=== PATIENT | female | born 1935 | race Caucasian/White ===

== ENCOUNTER 2016-08-07 05:37 | Inpatient (IN) | payer MEDICARE, OTHER ==
[2016-08-07] VITALS (20 sets, daily range): BP systolic 100–183; BP diastolic 44–73; PULSE 54–78; RESP 12–24; O2SAT 96–100
[~2016-08-07] VITALS: Ht 154.9 cm; Wt 67.9 kg
[~2016-08-07 05:37] MED LIST: AMLO10TA3 PO; ASPI325T32 PO; ATOR20TA PO; CALC-78 PO; CHOL10008 PO; Lactated Ringer's 1,000 ML IV ONE; METO100T3 PO; MULT-666 PO; OMEG-10 PO; OMEP20TA86 PO; TRIA1TAB3 PO
[2016-08-07] MEDS ORDERED: Clindamycin Inj 900 MG in IV Premix 1 EACH IV SCH (06:00)
--- NOTE | 2016-08-07 07:21 | PCM.HPANE ---
Patient Data Surgeon Admitting Provider: Attending Provider:Anthony Hollingsworth MD Primary Care Physician:Tc Morales MD Other Provider:Sylvester Baker Anesthesia Reason for Visit Right Lower Lobe Lung Cancer Ht/WT & BMI Height (Feet): 5 Height (Inches): 1 Weight (Kilograms): 70.4 Body Mass Index 29.00 Allergies Coded Allergies: Penicillins (Verified Allergy, Severe, "SEVERE REACTION", 08/04/16) lisinopril (Verified Adverse Reaction, Severe, ITCHING, DIARRHEA, 08/04/16) niacin (Verified Adverse Reaction, Severe, ITCHING, 08/04/16) Past Anesthesia History Anesthesia History: Denies:: Abnormal Airway, Anesthesia Reactions, Difficult Intubation, Fam Anesthesia Reaction, Fam Malignant Hypertherm, Malignant Hyperthermia Diabetes History Hx Diabetes?: No MRSA MRSA: No Medications Blood Thinner: Aspirin Hypertension Medication: Yes (AMLODIPINE,TRIAMTERENE/HCTZ) Home Meds Incl Beta Pradeep: Yes Date Beta Pradeep Taken: Aug 07, 2016 Time Beta Pradeep Taken: 429 Reported Medications Calcium Carbonate/Vitamin D3 (Calcium 500 + Vit D Caplet)1 Each Tablet1 Each PO BID 06/30/16 [place]adoo-3/Dha/Epa/Fish Oil (Fish Oil 1,000 mg Softgel)1 Each Capsule2 Each PO DAILY 2 CAPSULES DAILY 06/30/16 Cholecalciferol (Vitamin D3) (Vitamin D3)1,000 Unit Tab.chewUnknown Dose PO DAILY 06/30/16 Metoprolol Tartrate 100 Mg [id number] Mg PO BID 30 Days Ref 0 06/30/16 Omeprazole 20 Mg Tablet.dr20 Mg PO DAILY 06/30/16 Triamterene/HCTZ 37.5-25 mg 1 Each Tablet0.5 Tablet PO DAILY 0 06/30/16 Multivitamin (Once Daily)1 Each Tablet1 Each PO DAILY 06/30/16 Aspirin 325 Mg Ogrmbb630 Mg PO DAILY #1 BOTTLE 06/30/16 Atorvastatin (Lipitor)20 Mg Iqpucg93 Mg PO DAILY 30 Days Ref 0 11/12/13 Amlodipine 10 Mg Cujrlq37 Mg PO DAILY 30 Days Ref 0 06/27/13 History History of ENT Problems?: Yes HEENT History: Positive for:: Cataracts (s/p surgery) Denies:: Abnormal Airway Difficult Intubation Dysphagia Glaucoma Hearing Problem Sinus Problem TMJ Denture Type: Partial- Upper Teeth Condition: Within Normal Limits Hx of Heart Problems?: Yes Cardiovascular History: Positive for:: Chest Pain (2013 MPS WNL) Hypertension (HYPERLIPIDEMIA) Irregular Heartbeat (HX PSVT PT REPOIRTED PALPITATIONS) Denies:: Heart Murmur (STRESS ECHO 07/2016 EF 65-70%) Valvular Heart Disease Hx of Respiratory Problem?: Yes Respiratory History: Positive for:: Chest Surgery (S/P RLL BX RLL LUNG CA= CURRENT PROBLEM) Cough (CHRONIC, PRODUCTIVE PFT'S ORDERED-NO RESULTS YET) Denies:: Use of C-PAP Machine Hx Neurologic Problems?: Yes Neurological History: Positive for:: CVA (slight residual mental/memory diff) Headaches TIA Hx of GI Problems?: Yes Other GI Pertinent History: S/P APPY Hx of Problems?: No Female Hx: Positive for:: Problems with Breasts? (S/P RT BREAST BX, rt.mastectomy due to cancer in ) Denies:: Currently Endometriosis Pelvic Inflammatory Skin History: Denies:: History Skin Disorders? Pressure Ulcers Hx Musculoskeletal Problems?: Yes Musculoskeletal History: Positive for:: Back Injury Musculoskeletal Trauma (S/P RT KNEE SCOPE) Rheumatoid Arthritis Denies:: Joint Replacement Hx of Psycho/Social Problems?: Yes Psycho Social History: Positive for:: Hx Depression Hx Surgeries?: Yes (appendectomy,gallbladder,back,RT KNEE SCOPE,CATARACTS,RT BREAST BX/MASTECTO) Hx Any Other Health Problems?: Yes Other History: Positive for:: Cancer (hx of breast ca, RLL LUNG CA) Hospitalization Thyroid Disease Denies:: Endocrine Disease History Blood Transfusions: Denies:: Blood Transfuse Reaction Blood Transfusions Hx Diabetes: No Hx Alcohol Use: NoHx Substance Use: No Smoking Status: Former Smoker Have You Smoked inLast 12 mo: NoApprox How Many Cigarettes/day: 60 PK/YR/HX Stop/Bang Treated for Sleep Apnea?: No Do You Have a CPAP Machine?: No S-Snoring: Do You Snore Loudly: No T-Tired: feel tired, fatigued: No O-Obsered: Observed not breath: No P-Blood Pressure: treated: Yes B- Body Mass Index > 35 kg/m2: No A- Age over 50: Yes N- Neck Large Circumference: No G- Gender Male: No JONATHAN Total Score: 2 JONATHAN Risk Assessment: Low Risk, <3 Yes Risk Assessment Category Category 1A: Patient has history of documented sleep apnea, and HAS NOT received any narcotic, sedative or anesthesia administration during this stay. Category 1B: Patient has history of documented sleep apnea, and HAS received any narcotic , sedative or anesthesia administration during this stay Category 2: Patient has SUSPECTED Obstructive Sleep Apnea, and HAS received any narcotic , sedative or anesthesia administration during this stay. Category 3: Patient has SUSPECTED Obstructive Sleep Apnea and HAS NOT received narcotic, sedative or anesthesia administration during this stay. Category 4: Outpatient in Procedural Areas with known sleep apnea or who screen positive for High Risk via the STOP/BANG questionnaire. Exam Exam Vital Signs Vital Signs Date Time Temp Pulse Resp B/P Pulse Ox O2 Delivery O2 Flow Rate FiO2 08/07/16 06:31 65 18 183/73 96 Room Air 08/07/16 06:08 36.0 68 18 168/73 96 Room Air General Appearance: Oriented X3 HEENT/AIRWAY: MP 2 Lungs: Diminished Heart: Regular Rate/Rhythm Meds/Labs/Diagnostics Admission Meds Current Medications Lactated Ringer's (Lr) 1,000 ml @ 120 mls/hr Q8H20M ONCE IV Last administered on 08/07/16t 05:43; Start 08/07/16 at 05:00; Stop 08/07/16 at 13:19 Plan Impression Patient chart reviewed, patient interviewed and anesthestic plan with risks, benefits, and alternatives discussed, and informed consent obtained. ASA Physical Status: ASA3 Severe Disease Anesthetic Support Modalities: Arterial Line Anesthetic Plan: GA, Epidural Bene/Risks/Altern/Consents: Yes HP Complete Prior to Induction: Yes Other DLETT, Chipped teeth, need for prolonged intubation Demian Strak MD Aug 07, 2016 07:21
[2016-08-07] MEDS ORDERED: Ondansetron 2 mg/mL 2 mL Inj IVPUSH PRN ×3 (07:35→11:50)
[2016-08-07] MEDS ORDERED: Atropine 1 mg/mL Inj IVPUSH PRN (07:35)
[2016-08-07] MEDS ORDERED: EPHEDrine Sulfate 50 mg/mL Inj IV PRN (07:35)
[2016-08-07] MEDS ORDERED: fentaNYL 2 mCg/mL-Bupivicaine 0.125% 100 mL Premix EPIDURAL ONE (08:25)
[2016-08-07] MEDS: Sodium Chloride LOK Flush 10 mL Syringe IVFLUSH SCH ×3 (08:30→19:51)
[2016-08-07] MEDS ORDERED: Bupivacaine-MPF 0.5% W/EPI 30 mL Inj INFILTRATE ONE (08:36)
[2016-08-07 08:46] LABS: APPEARANCE,URINE HAZY (CLEAR,HAZY); COLOR,URINE STRAW (YELLOW)
[2016-08-07 08:47] LABS: OCCULT BLOOD,URINE NEGATIVE (NEGATIVE); UROBILINOGEN,URINE NORMAL (NORMAL)
[2016-08-07] MEDS ORDERED: Lactated Ringer's 500 ML IV PRN (09:01)
[2016-08-07] MEDS ORDERED: Lactated Ringer's 1,000 ML IV SCH ×2 (09:01→22:55)
[2016-08-07] MEDS ORDERED: Labetalol 5 mg/mL 4 mL Inj IV PRN (09:05)
[2016-08-07] MEDS ORDERED: Phenylephrine 10,000 mCg/mL Inj IVPUSH PRN (09:05)
[2016-08-07] MEDS ORDERED: MetoCLOpramide 5 mg/mL 2 mL Inj IVPUSH PRN ×2 (09:05→11:50)
[2016-08-07] MEDS ORDERED: HYDROmorphone 1 mg/mL Inj IVPUSH PRN (09:05)
[2016-08-07] MEDS ORDERED: Dexamethasone 4 mg/mL Inj IVPUSH PRN (09:05)
[2016-08-07] MEDS ORDERED: EPHEDrine Sulfate 50 mg/mL Inj IVPUSH PRN (09:05)
[2016-08-07] MEDS: Dextrose 5% Lactated Ringer's 1,000 ML IV SCH ×2 (11:49→19:41)
[2016-08-07] MEDS ORDERED: Polyethylene Glycol (PEG) 17 Gm Powder PO PRN (11:50)
--- NOTE | 2016-08-07 12:18 | PCM.SURGOP ---
Surgical Operative Report Date of Service: Aug 07, 2016 Pre Operative Diagnosis Right lower lobe adenocarcinoma Post Operative Diagnosis Same Procedure: Cervical mediastinoscopy with biopsy, right thoracotomy, right lower lobectomy Surgeon and Bridal Sales Consultant: Surgeon: Anthony Hollingsworth MD Assistants: Luther Leyva M.D.; Giuliano Simpson M.D. 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 Staging showed no evidence of mediastinal lymphadenopathy or distant disease. Pulmonary function testing demonstrated an FEV1 of 1.2 L, and she had a normal ejection fraction on stress echo. She was offered referral to a tertiary care center for minimally invasive pulmonary resection, but she elected to stay in the [facility], and was offered cervical mediastinoscopy, right thoracotomy with right lower lobectomy. After discussion of risks and benefits, she agreed to proceed. Findings: Frozen section from mediastinal lymph nodes were all negative. The right lower lobe mass had a clear clinical demarcation away from the junction with the middle lobe. There was no pleural effusion or any adhesion to the parietal pleura. Procedure Details A thoracic epidural was placed. After smooth induction of general endotracheal anesthesia with a double-lumen endotracheal tube, a right radial arterial catheter and a Maldonado catheter were placed. She was initially placed in the supine position with the neck extended and the right arm tucked, and was prepped and draped in wide sterile fashion. A procedural pause was performed according to the SCOAP checklist, and all were found to be in agreement. A transverse incision was made on the anterior neck, just below the cricoid cartilage. Dissection was carried down through the subcutaneous tissue until the platysma muscle was divided. Dissection was carried down in the midline until the trachea was identified inferior to the thyroid isthmus. A pretracheal plane was developed until a finger was able to be inserted into the thoracic inlet posterior to the innominate artery. The mediastinoscope was inserted. Dissection was carried down bluntly until the kodi was identified as well as the right mainstem bronchus. Fortunately, her mediastinal lymph nodes were easily visible with almost no dissection. The right main pulmonary artery was also identified adjacent to the kodi. Lymph node stations were sampled using biting mediastinal forceps from node stations 7, 10R, 4R, 4L, 2R, 2L. All nodes were anthracotic, but soft, not clinically concerning for malignancy. Frozen sections were obtained from all of those michelle sites. All frozen sections came back negative for malignancy. The median raphae was closed with interrupted 3-0 Vicryl suture. The platysma muscle was closed with interrupted 3-0 Vicryl suture. The skin incision was closed with a running 4-0 Monocryl subcuticular stitch. Dermabond was applied to the skin as a dressing. She was then positioned in the left lateral decubitus position on the beanbag , with the bed flexed. The right chest was prepped and draped in wide sterile fashion. A right anterolateral thoracotomy incision was made just below the level of the scapular tip. Dissection was carried down through the subcutaneous tissue. The serratus anterior muscle and the latissimus dorsi muscle were divided with electrocautery. The scapula was retracted, and ribs were counted. An incision was made in the fifth intercostal space through the intercostal muscles after single lung ventilation was employed. The lung was successfully isolated. The parietal pleura was incised. The fifth rib was transected posteriorly to allow for increased rib retraction. A rib field contact person was placed. Inspection revealed no pleural effusion. The fissures were well developed. There were no pleural masses or adhesions. The mass was easily palpable in the superior aspect of the right lower lobe, without any clinical concern for invasion into the middle lobe. The pulmonary artery was visible in the fissure. The visceral pleura was incised, and then Kitners were utilized to isolate the branches of the pulmonary artery, including the branch to the superior segment, as well as the basal trunks. The superior segment branch was divided first. All pulmonary artery branches were divided using 3-0 silk ties on both the standing and going side, as well as a 2-0 silk suture ligature on the staying side. After the superior segmental branch was divided, the anterior medial trunk of the basal segment was isolated and divided. Finally, the posterior lateral trunk of the basal segment was isolated and divided. Next , the inferior pulmonary ligament was released up to the level of the inferior pulmonary vein on the right. The lung was retracted anteriorly, and the posterior visceral pleura was incised. A window was created between the middle lobe vein trunk and the inferior trunk. The inferior pulmonary vein was divided with the [place] 60 mm stapler with a vascular load. The inferior lobe bronchus was then isolated and encircled with a vessel loop. There was a small amount of pulmonary parenchyma both superior and inferior to the bronchus branch. A TA 30 mm stapler with 4.0 mm shu was applied across the inferior bronchus, and before firing the stapler, the middle lobe and upper lobe were seen to inflate well with ventilation. Single lung ventilation was again employed. The TA stapler was fired, and the bronchus was transected distal to the staple line with a scalpel. A small amount of pulmonary parenchyma remained attached, again both superior and inferior to the bronchus, and those areas were divided with the [place] 60 mm stapler with Seamguard. At this point , the right lower lobe was completely dissected free, and it was passed off the field for permanent pathology. The parenchymal margin was negative by palpation. Hemostasis was adequate. There was another visible lymph node between the pulmonary artery trunk and the bronchus, which was an 11R lymph node. This was dissected free and sent for permanent pathology. The bronchial stump was then tested by submerging the right chest and saline, and inflating both the right upper lobe and right middle lobes to a Valsalva pressure of 30 mmHg, and there was no evidence of bronchial stump leak. 28 Spanish chest tubes were placed, both a straight chest tube anteriorly, and an angled chest tube posteriorly, which were brought out through separate incisions inferiorly, tunneled over the rib, and positioned. The anterior tube was placed anterior to the lung parenchyma and directed to the apex, and the posterior angled tube was placed in the posterior sulcus. Both tubes were secured to the skin with 2- 0 nylon suture. The rib retractor was then removed. Rib closure was performed using #1 Vicryl sutures 2, encircling the fifth rib. The incision was then closed in layers. Running 2-0 Vicryl suture was used to reapproximate the serratus anterior muscle. Running 2-0 Vicryl suture was used to reapproximate the latissimus dorsi muscle. A running 3-0 Vicryl suture was used on the subcutaneous tissue. The skin incision was closed with a running 4-0 Monocryl subcuticular stitch. Steri-Strips and sterile dressings were applied. At the end of the case all needle and sponge counts were correct 2. The patient was awakened from anesthesia without difficulty, and taken to the recovery room in satisfactory condition, having tolerated the procedure well. A portable chest x-ray was obtained in the recovery room, which showed that the right middle and upper lobes were well inflated, with chest tubes in appropriate positions, and there was no left pneumothorax. Complications There were no periprocedural complications identified. Surgical Specimen Removed: Yes Specimen sent to Pathology: Yes Surgical Specimen description: Level 7, 10R, 4R, 4L, 2R, 2L lymph nodes. Right lower lobe. Level 11R node. Anesthetic Plan: GA, Epidural Grafts, Implants: None Output, Estimated Blood Loss: 30 Blood Administration during stubbs: No Catheters: Urethral 2 Way Maldonado copies to: Tc Morales MD; Jazz Du MD, Joshua D MD Aug 07, 2016 12:18
[2016-08-07] MEDS: fentaNYL-PF 50 mCg/mL 2 mL Inj IVPUSH PRN ×4 (12:20→14:37)
--- NOTE | 2016-08-07 12:33 | DRSVH ---
PROCEDURE: X-RAY CHEST ONE VIEW, PORTABLE ([id number]) INDICATIONS: evaluate chest tubes TECHNIQUE: One view of the chest was acquired. COMPARISON: [facility], CR, XR CHEST 1VW (PORTABLE), 07/03/2016, 11:28. FINDINGS: Surgical changes and devices: two right-sided chest tubes have been placed. Right axillary clips are stable compared to prior examination. Possible left-sided PICC line noted. Lungs and pleura: No pleural effusions. Lungs are clear. Right lung is slightly lucent relative to the left suspicious for anterior pneumothorax. Mediastinum: Mediastinal contours appear normal. Heart size is normal. Bones and chest wall: No suspicious bony lesions. Overlying soft tissues appear unremarkable. IMPRESSION: Status post right-sided chest tube placement. Right lung is lucent relative to the left s uspicious for anterior pneumothorax. Recommend left lateral decubitus (left side down) view of the [facility] chest if clinically indicated. Dictated by: Malissa Vargas MD, PhD on 08/07/2016 at 12:29 Approved by: Malissa Vargas MD, PhD on 08/07/2016 at 12:32
--- NOTE | 2016-08-07 13:44 | PCM.ANEP1 ---
Post Anesthesia PACU Phase 1 Assessment Vital Signs Vital Signs Date Time Temp Pulse Resp B/P Pulse Ox O2 Delivery O2 Flow Rate FiO2 08/07/16 13:11 62 14 144/58 100 Nasal Cannula 2 08/07/16 12:57 70 14 152/60 100 Nasal Cannula 2 08/07/16 12:30 62 14 134/47 98 Nasal Cannula 2 08/07/16 12:25 14 140/57 99 Nasal Cannula 10 08/07/16 12:10 54 13 122/52 100 Simple Mask 10 08/07/16 12:05 36.2 54 12 125/63 100 Simple Mask 10 08/07/16 06:31 65 18 183/73 96 Room Air 08/07/16 06:08 36.0 68 18 168/73 96 Room Air Anesthetic Administered: GA, Epidural Level of Alertness: Awake, talking Pain: No Nausea or Vomiting: No CV Function & Hydration Stable: Yes Airway Device: Lungs: Diminished PACU Phase 2 Assessment Patient Instructions Provided: N/A Demian Stark MD Aug 07, 2016 13:44
[2016-08-07] MEDS: Acetaminophen IV 1,000 MG in IV Premix 1 EACH IV SCH ×2 (14:30→20:59)
[2016-08-07] MEDS ORDERED: Dexamethasone 4 mg/mL Inj ONE (15:50)
[2016-08-07] MEDS ORDERED: Propofol 10,000 mCg/mL 20 mL Inj ONE (15:50)
[2016-08-07] MEDS ORDERED: Neostigmine 1 mg/mL 10 mL Inj ONE (15:50)
[2016-08-07] MEDS ORDERED: Rocuronium 10 mg/mL 5 mL Inj ONE (15:50)
[2016-08-07] MEDS ORDERED: Glycopyrrolate 0.2 MG/ML 1mL Inj ONE (15:50)
[2016-08-07] MEDS ORDERED: MetoCLOpramide 5 mg/mL 2 mL Inj ONE (15:50)
[2016-08-07] MEDS ORDERED: Ondansetron 2 mg/mL 2 mL Inj ONE (15:50)
[2016-08-07] MEDS ORDERED: Lactated Ringer's 1,000 ML IV ONE (16:30)
--- NOTE | 2016-08-07 16:45 | NUR ---
Post op Patient Report received from Inez shah RN. Patient received at about 1630. Patient rouses easily with verbal stimuli. Baseline vitals charted by THICKENER OPERATOR. Maldonado patent draining clear yellow urine, 75 cc in the bag. Epidural set to continuous at 5ml/hr. Verified at bedside with charge account clerk. Instructions reinforced to patient on use of epidural. Pt has full sensation to lower extremities. Pt denies pain or nausea at this time, tolerating drinking water. Dressing to right chest dry and intact. Assessment performed and documented. Chest tube connected to 20cm wall suction per Report. Fluctuation noted with respirations. unable to note upper and lower tube connection will heaven containers by numbers 1 and 2 for charting purposes. Pt arrived with chest drain 1 containing 30ml of sanguineous drainage and chest drain 2 containing 140ml of sanguineous drainage. Ongoing care.
[2016-08-07] MEDS: Heparin 5,000 Unit/mL Inj SUBQ SCH ×2 (18:23→23:59)
[2016-08-07] MEDS ORDERED: Famotidine Inj 20 MG in IV Premix 1 EACH IV SCH (20:30)
[2016-08-07] MEDS: fentaNYL 2 mCg/mL-Bupiv 0.125% 100 ML in IV Premix 1 EACH EPIDURAL SCH (20:56)
[2016-08-08] VITALS (11 sets, daily range): BP systolic 115–153; BP diastolic 52–76; PULSE 52–92; RESP 16–20; O2SAT 94–97
[2016-08-08] MEDS: Acetaminophen IV 1,000 MG in IV Premix 1 EACH IV SCH ×3 (02:58→16:10)
[2016-08-08 03:00] LABS: BASOPHILS % (AUTO) 0 % (0-3); EOSINOPHILS % (AUTO) 0 % (0-5); MONOCYTES % (AUTO) 10.6 % (4-12); Mean Corpuscular Hemoglobin 31.4 pg (27.0-35.0); Mean Corpuscular Volume 93.6 fL (81-100); NEUTROPHILS % (AUTO) 83.5 % (40-74); Platelet Count 175 bil/L (150-400)
[2016-08-08] MEDS: Pantoprazole 20 mg ER24 Tablet PO SCH ×2 (05:51→06:51)
--- NOTE | 2016-08-08 06:07 | NUR ---
Pain/Resp/Anxiety Pt alert and oriented x3 but forgetful at times. She gets anxious often and needs reassurance. Pain 3-7/10. Pt reports pain relief with current epidural setting. Pt has intact/full sensation. Telemetry SR/SB in high 50s to 60s. Right chest dressing site CDI. Pt reports been unable to sleep for weeks even before the surgery due to anxiety. She denies taking any medication for it. She reported feeling panic attack tonight. Pt mentioned being in hospital for panic attack in the past. She was requesting for any medication for anxiety. Md made aware. Lorazepam given with effectiveness noted. Chest tube # 1 with noted 15 cc sanguineous drainage. Chest tube #2 has air leak/fluctuation as noted from beginning of shift. #2 Chest tube has 200 cc output. Pt using IS while awake and encourage to use it often.
--- NOTE | 2016-08-08 08:06 | DRSVH ---
PROCEDURE: X-RAY CHEST ONE VIEW, PORTABLE ([id number]) INDICATIONS: evaluate chest tubes TECHNIQUE: One view of the chest was acquired. COMPARISON: [facility], CR, XR CHEST 1VW (PORTABLE), 08/07/2016, 12:07. FINDINGS: Surgical changes and devices: Stable position of right pleural drains. Multiple right axillary chest surgical clips. Lungs and pleura: There is lucency involving the medial right lung base similar to prior examination suspicious for small anterior pneumothorax. There is minimal medial streaky opacity likely atelectas is. Mediastinum: Mediastinal contours appear normal. Heart size is normal. Bones and chest wall: No suspicious bony lesions. Overlying soft tissues appear unremarkable. IMPRESSION: 1. Stable positioning of right pleural drains in lucency involving the medial right lung base suspici ous for small anterior pneumothorax similar to prior examination. 2. Streaky bibasilar opacities likely atelectasis. Dictated by: Praveen Fuller [facility] Interpreted: Shereen Goins MD on 08/08/2016 at 8:04 Transcribed by: KATEY on 08/08/2016 at 8:06 Approved by: Shereen Goins M.D. on 08/08/2016 at 21:05
[2016-08-08] MEDS: Calcium Carbonate (Oyster Shell) 500 mg Tablet PO SCH ×2 (08:27→16:56)
[2016-08-08] MEDS: Sodium Chloride LOK Flush 10 mL Syringe IVFLUSH SCH ×3 (08:28→20:25)
[2016-08-08] MEDS: Omega-3 Fatty Acids 1,000 mg Capsule PO SCH (08:31)
[2016-08-08] MEDS: Heparin 5,000 Unit/mL Inj SUBQ SCH ×2 (08:33→16:56)
--- NOTE | 2016-08-08 08:48 | PROG NOTE ---
[address] [address] PROGRESS NOTE PATIENT: MARISABEL DIOP : 1935 MR#: [id number] ADMIT: 08/07/2016 JOB ID: [id number] DATE: 08/08/2016 SUBJECTIVE: An 80-year-old female, status post right thoracotomy with lobectomy currently with a thoracic epidural at T5 in place running bupivacaine 0.125% with 2 mcg/mL of fentanyl. On a visual analog scale, she complains of 3/10 pain, although that 3 pain is located in her right shoulder. She has no pain at her incision or chest tube sites. No other complaints at this time. OBJECTIVE: She was afebrile with normal vital signs. She is on heparin 5000 units subcutaneous three times daily. Her epidural site was clean, dry, and intact. She has no focal neurological deficits. Platelets are 175. ASSESSMENT AND PLAN: This delightful lady is making an excellent recovery from a major operation. At this time her course is ideal and there will be no changes made, and we will continue to follow.
[2016-08-08] MEDS: fentaNYL 2 mCg/mL-Bupiv 0.125% 100 ML in IV Premix 1 EACH EPIDURAL SCH ×2 (10:18→21:29)
--- NOTE | 2016-08-08 11:58 | NUR ---
AM Metoprolol Pt said she doesn't normally take Metoprolol 100mg BID, she takes it but not that dosage and doesn't remember the dose. HR is 52 this am so I would clarify with the MD which is surgery. For now I am with holding the am dose and will ask surgery about this. is unsure and home med rec was completed prior to surgery and it has Metoprolol 100mg BID. Will need clarification.
--- NOTE | 2016-08-08 14:02 | PROG NOTE ---
[address] [address] PROGRESS NOTE PATIENT: MARISABEL DIOP : 1935 MR#: [id number] ADMIT: 08/07/2016 JOB ID: [id number] DATE: 08/08/2016 SUBJECTIVE: The patient is seen in followup. She is doing very well. Her pain is well controlled with the epidural. She has no nausea. She is not complaining of significant shortness of breath and she is using her incentive spirometer. She is hopeful to get up on her feet and ambulate today. OBJECTIVE: Temperature 36.5, pulse 58, blood pressure 115/52, saturation 97% on 1 L nasal cannula. General: She is sitting up in bed, in no acute distress. Neck: No jugular venous distention. Chest: She has good air movement on the right with some slightly coarse breath sounds. Her incision is intact. Chest tubes have serosanguineous drainage, 200 cc from chest tube #2, and 15 cc from chest tube #1 overnight. Chest tube #2 has a fairly small, intermittent air leak with vigorous expiration. Chest tube #1 has no air leak. Heart: Regular rate and rhythm. No murmurs. Extremities: No edema. LABORATORIES: White blood cell count 10.2, hematocrit 36.4, platelets 175, creatinine 1.03, glucose 155. Chest x-ray today shows stable positioning of chest tubes and possible small anterior medial lung base pneumothorax, which is likely just a lack of complete filling of the chest cavity with her middle and upper lobes. ASSESSMENT/PLAN: An 80-year-old woman, postoperative day one, status post cervical mediastinoscopy and right thoracotomy with right lower lobectomy for adenocarcinoma of the right lower lobe. She is doing extremely well clinically. Chest tubes have been placed to water seal today. If output remains minimal, I will start removing chest tubes sequentially tomorrow. Maldonaod catheter will come out tomorrow. For today, I would like to get her up and ambulating. Will repeat a chest x-ray tomorrow. Epidural should stay in for today.
[2016-08-09] VITALS (12 sets, daily range): BP systolic 133–171; BP diastolic 56–88; PULSE 58–91; RESP 16–22; O2SAT 95–97
[2016-08-09] MEDS: Heparin 5,000 Unit/mL Inj SUBQ SCH ×3 (00:30→16:12)
--- NOTE | 2016-08-09 05:29 | NUR ---
2009 Confusion/Agitation Pt getting restless, anxious and impulsive during beginning of shift . Her confusion and restlessness escalating through the evening. [place] alarm on. She was getting up from the chair to bed and pulling on lines. She at times answers questions appropriately but noted to be getting paranoid, delirious and talking of confused conversation through the night. Sitter at bedside. Pt started getting more agitated and combative with staff. Asking about calling the police and wanting to get out of here. Md made aware. Order to try to give Lorazepam order to help with agitation/anxiety. Pt reports feeling pain and wanting to go to sleep. Lorazepam given and noted to be effective at this time. Pt sleeping after dose. Patient wakes up with stimuli. She gets restless occasionally but falls back to sleep. Chest tube x2 patent on water seal. Air leak and fluctuation noted on both Chest tube. Sero-sanguineous drainage noted. Reinforced chest tube dressing. Chest tube # 2 has 200 cc. Chest tube #1 with 45 cc. Addendum: 08/09/16 at 0652 by RIVAS ZULETA RN Pt waking up this am after sleeping after dose of Lorazepam. She is still confuse and gets restless in bed. Sitter at bedside. Measured ETCo2 using capnography with ETco2 of 30.
[2016-08-09] MEDS ORDERED: Haloperidol 5 mg/mL Inj IVPUSH PRN (08:00)
--- NOTE | 2016-08-09 08:22 | PROG NOTE ---
[address] [address] PROGRESS NOTE PATIENT: MARISABEL DIOP : 1935 MR#: [id number] ADMIT: 08/07/2016 JOB ID: [id number] DATE: 08/09/2016 SUBJECTIVE: The patient is seen in followup. She has been getting increasingly confused overnight, pulling at lines and tubes. She had a sitter overnight. She was given lorazepam for agitation which was helpful. She is not complaining of pain. Yesterday she did well sitting up in a chair for approximately 2 hours, and was able to be on room air when upright and awake. OBJECTIVE: Temperature 37.2, pulse 73, blood pressure 144/85, saturation 96% on 2 liters. General: She is sitting up in bed, in no acute distress. Neck: Trachea is midline, no jugular venous distention. Chest: She has coarse breath sounds but good air movement. Her right thoracotomy incision is clean with no erythema, no drainage. Right-sided chest tubes have no air leak, do have respiratory fluctuation, and have serosanguineous drainage. Drainage was 200 cc from the posterior tube, 45 cc from the anterior tube overnight. Heart: Regular rate and rhythm. No murmurs. Extremities: No edema. Neuro: She is alert, oriented to person only. She knows who the 911 emergency services dispatcher is, but does not know the year or the place. IMAGING: Portable chest x-ray today shows the right upper and middle lobes are well expanded. I do not appreciate significant pneumothorax or pleural effusion. Her chest tubes are in good position. ASSESSMENT AND PLAN: An 80-year-old woman, postoperative day two, status post right thoracotomy with a right lower lobectomy, cervical mediastinoscopy with biopsies. Her main active issue at this point is confusion and sundowning. She will need to be reoriented frequently. We will discontinue lorazepam and will try to minimize narcotics. I think the epidural should be continued today. We will use Haldol as needed for agitation and confusion. Her Maldonado catheter will be discontinued today. Her anterior chest tube was removed today and the posterior chest tube will remain to water seal. A portable chest x-ray will be obtained tomorrow.
[2016-08-09] MEDS: Sodium Chloride LOK Flush 10 mL Syringe IVFLUSH SCH ×2 (08:30→16:15)
--- NOTE | 2016-08-09 09:19 | NUR ---
Social Work: Initial Assessment Data: Pt is an 80 y/o female admitted for right lower lobe lung cancer. Pt's PCP is Dr Morales, pt's insurance is [employer] with [employer]. EMR reviewed. Readmit score is 3. DENTAL APPLIANCE MECHANIC met with pt at bedside, role explained. Pt has a sitter at bedside due to confusion and agitation overnight per RN note. Pt answered questions appropriately, but may not be a reliable source of information at this time. DENTAL APPLIANCE MECHANIC called pt's after speaking with with pt to discuss how pt was before admission and to discuss discharge planning, no answer, DENTAL APPLIANCE MECHANIC left a message. Pt states she lives with her in a 2 story home where she cares for her who is wheelchair bound. Pt states she uses no DME, drives, has hx of unknown HH company, no SNF hx, no LTC or VA benefits. Pt reports that she has been up and independent in the room and is able to toilet independently; however, DENTAL APPLIANCE MECHANIC checked RN notes and pt is a 1 person assist and requires total assistance with toileting at this time. DENTAL APPLIANCE MECHANIC will await pt's phone call to discuss further her baseline and d/c planning. DENTAL APPLIANCE MECHANIC paged surgical MD, they anticipate pt likely to d/c in 3-4 days. They state they will order PT, but that pt has a chest tube at this time and likely they will wait until the chest tube is out to work with her. MD states possible need for home O2 at d/c but that they are unsure at this time of the need. MD states d/c with HH or to SNF likely for this pt. DENTAL APPLIANCE MECHANIC will continue to follow. Assessment: Pt who is independent at baseline. Plan: MD states pt likely to be medically stable in 3-4 days, possible home O2 need. DENTAL APPLIANCE MECHANIC will continue to follow for possible HH or SNF need and continue checking in with surgical MD regarding D/C planning needs. IRMA Andre Addendum: 08/09/16 at 0925 by CALEB AUGUSTE Amended: Links added.
--- NOTE | 2016-08-09 10:09 | DRSVH ---
PROCEDURE: X-RAY CHEST ONE VIEW, PORTABLE ([id number]) INDICATIONS: evaluate chest tubes TECHNIQUE: One view of the chest was acquired. COMPARISON: [facility], CR, XR CHEST 1VW (PORTABLE), 08/07/2016, 12:07. [facility], CR, XR CHEST 1VW (PORTABLE), 08/08/2016, 5:25. FINDINGS: Surgical changes and devices: Stable position of right pleural drains. Multiple right axillary chest surgical clips. Lungs and pleura: There is lucency involving the medial right lung base similar to prior examination suspicious for small anterior pneumothorax. There is minimal medial streaky opacity likely atelectas is. Mediastinum: Mediastinal contours appear normal. Heart size is normal. Bones and chest wall: No suspicious bony lesions. Overlying soft tissues appear unremarkable. IMPRESSION: 1. Stable positioning of right pleural drains in lucency involving the medial right lung base suspicious for small anterior pneumothorax similar to prior examination. 2. Streaky bibasilar opacities likely atelectasis. Dictated by: Praveen Fuller [facility] Interpreted: Malissa Vargas MD on 08/09/2016 at 9:45 Approved by: Malissa Vargas MD, PhD on 08/09/2016 at 10:07
[2016-08-09] MEDS: Omega-3 Fatty Acids 1,000 mg Capsule PO SCH (10:21)
[2016-08-09] MEDS: Calcium Carbonate (Oyster Shell) 500 mg Tablet PO SCH ×2 (10:21→20:37)
[2016-08-09] MEDS: fentaNYL 2 mCg/mL-Bupiv 0.125% 100 ML in IV Premix 1 EACH EPIDURAL SCH (14:28)
--- NOTE | 2016-08-09 17:16 | NUR ---
CONFUSION/ PAIN Pt. orientated to self and location, however confused, restless, and periods of agitation this am. Surgical incision open to air, with steri strips c/d/i. Chest tube #1 d/c, and re-dressed by Dr. Hollingsworth; remains c/d/i. Maldonado d/c and pt up to bsc. Encouraged PO intake and IS while awake. Pt. up in chair for meals, family here for visit. Patient rested for extended period of time and woke A/0x3 with smaller periods of confusion, and no agitation observed. PAIN: Epidural remains in place, pt indicates no pain today and no breakthrough pain reported.
--- NOTE | 2016-08-09 21:37 | PROG NOTE ---
[address] [address] PROGRESS NOTE PATIENT: MARISABEL DIOP : 1935 MR#: [id number] ADMIT: 08/07/2016 JOB ID: [id number] DATE: 08/09/2016 SUBJECTIVE: An 80-year-old female status post right thoracotomy with right lower lobectomy and mediastinoscopy with nodes. Currently, postoperative day two with a thoracic epidural running bupivacaine 0.125% with 2 mcg/mL fentanyl at a rate of five per hour. On a visual analog scale, she complains of 3/10 right shoulder pain. Otherwise she is currently happy with her pain management. She denies any pain at the chest tube site. The patient has ambulated today. She is eating, and she had one of her chest tubes removed today. She is also appearing to be more clear as she suffered from some confusion and sundowning last evening. OBJECTIVE: T-max was 37.2. No labs were done today. She is on heparin 5000 units t.i.d. as well as aspirin. Her epidural site was clean, dry, and intact and she has no focal neurological deficits. ASSESSMENT AND PLAN: We will continue to follow this patient. She is making an excellent recovery. She has superior pain control and with her confusion as well as persistent chest tube, I see no reason to cancel the epidural for at least another day or two.
[2016-08-10] VITALS (12 sets, daily range): BP systolic 130–173; BP diastolic 58–74; PULSE 60–78; RESP 16–22; O2SAT 95–97
[2016-08-10] MEDS: Heparin 5,000 Unit/mL Inj SUBQ SCH ×3 (00:32→16:57)
[2016-08-10] MEDS: Sodium Chloride LOK Flush 10 mL Syringe IVFLUSH SCH ×3 (00:32→16:57)
[2016-08-10] MEDS: fentaNYL 2 mCg/mL-Bupiv 0.125% 100 ML in IV Premix 1 EACH EPIDURAL SCH (04:40)
--- NOTE | 2016-08-10 06:22 | NUR ---
Tele/Drains Chest tube drain CDI, output 100 Ml this shift, No Co Pain , changed epidural Medication , A&O x 3. 2 L O2 per NC Tele SR 63.
[2016-08-10] MEDS ORDERED: HYDROcodone-APAP 5-325 mg Tablet PO PRN (07:30)
[2016-08-10] MEDS: Calcium Carbonate (Oyster Shell) 500 mg Tablet PO SCH ×2 (08:18→18:29)
[2016-08-10] MEDS: Omega-3 Fatty Acids 1,000 mg Capsule PO SCH (08:18)
[2016-08-10] MEDS: Pantoprazole 20 mg ER24 Tablet PO SCH (08:19)
--- NOTE | 2016-08-10 08:46 | PROG NOTE ---
[address] [address] PROGRESS NOTE PATIENT: MARISABEL DIOP : 1935 MR#: [id number] ADMIT: 08/07/2016 JOB ID: [id number] DATE: 08/10/2016 SUBJECTIVE: The patient is seen in followup. She is doing well. After Haldol was ordered yesterday for confusion, her confusion improved significantly, and she did not require any medication intervention. Today, she is not complaining of pain. She does not have significant shortness of breath. She states that she did cough up a small amount of brown sputum. OBJECTIVE: Temperature 36.3, pulse 64, blood pressure 173/74, saturation 96% on 2 liters nasal cannula. General: She is sitting up in a chair in no acute distress. Neck: No jugular venous distention. Chest: She has good air movement bilaterally. Her thoracotomy incision is clean with no erythema. Her remaining chest tube has no air leak, serosanguineous drainage, 100 cc overnight. The remaining chest tube was removed and occlusive dressing was applied. Heart: Regular rate and rhythm. No murmurs. Neuro: She is alert and oriented x3. She is sitting up and talking about politics this morning. ASSESSMENT/PLAN: An 80-year-old woman with T2 N0 right lower lobe adenocarcinoma, postoperative day three, status post mediastinoscopy with biopsy, right thoracotomy with right lower lobectomy. Her mild postoperative delirium has cleared. Her chest tubes are all out. I have started her on oral pain medication today and will communicate with Anesthesiology about removing her epidural. I think it should be removed today, but will leave that up to their discretion. I think discharge from the hospital is likely in the next 1-2 days. She states that she does do a fair amount of caregiving for her at home; although, he is currently independent. I will defer to Physical Therapy and Continuing Education Dean about whether not she is safe for discharge to home or if she will need senior living facility placement. We will work on weaning oxygen today.
--- NOTE | 2016-08-10 10:18 | DRSVH ---
PROCEDURE: X-RAY CHEST ONE VIEW, PORTABLE ([id number]) INDICATIONS: evaluate chest tube TECHNIQUE: One view of the chest was acquired. COMPARISON: [facility], CR, XR CHEST 1VW (PORTABLE), 08/09/2016, 5:37. FINDINGS: Surgical changes and devices: Stable position of right pleural drains. Multiple right axillary chest surgical clips. Lungs and pleura: There is lucency involving the medial right lung base similar to prior examination suspicious for small anterior pneumothorax. Streaky opacity again seen within the right lung base li ariella atelectasis. Mediastinum: Mediastinal contours appear normal. Heart size is normal. Bones and chest wall: No suspicious bony lesions. Overlying soft tissues appear unremarkable. IMPRESSION: 1. Stable position right pleural drains. 2. No significant change in lucency involving the medial right lung base suspicious for anterior smal l pneumothorax. Dictated by: Praveen Fuller Momo Interpreted: Shereen Goins MD on 08/10/2016 at 10:16 Transcribed by: KATEY on 08/10/2016 at 10:17 Approved by: Shereen Goins M.D. on 08/10/2016 at 10:40
--- NOTE | 2016-08-10 10:59 | NUR ---
[facility] Signed
--- NOTE | 2016-08-10 15:13 | PROG NOTE ---
[address] [address] PROGRESS NOTE PATIENT: MARISABEL DIOP : 1935 MR#: [id number] ADMIT: 08/07/2016 JOB ID: [id number] DATE: 08/10/2016 SUBJECTIVE: An 80-year-old female, status post right thoracotomy with right lower lobe removal with mediastinoscopy and nodes. Currently postoperative day three with a thoracic epidural in place running bupivacaine 0.125% with 2 mcg/mL of fentanyl. On a visual analog scale, she complains of 0/10 pain. She has ambulated and is eating a full diet, and her chest tubes have been removed. She has no current complaints and states she is doing well. Of note, her cognition is certainly better than it has been the last few days. It looks like she is returning to her baseline. OBJECTIVE: The patient was afebrile. All other vital signs are stable. Laboratory values were not obtained today. She is currently on heparin 5000 units subcu t.i.d. Her epidural site was clean, dry and intact, although I did reinforce the dressing with some foam tape. ASSESSMENT AND PLAN: This patient is making an excellent recovery from her rather large operation at her age. I spoke with Dr. Hollingsworth and the patient about the plan of removing her epidural tomorrow. I thought it was hunt to care for her one more night of pain-free sleep to further postpone oral or IV opiates and to tristan off the potential for sundowning with increased pain and opiates. I will visit her tomorrow morning and remove the epidural, assuming nothing has changed.
[2016-08-10 18:41] LABS: BASOPHILS % (AUTO) 0.2 % (0-3); EOSINOPHILS % (AUTO) 0 % (0-5); MONOCYTES % (AUTO) 11.9 % (4-12); Mean Corpuscular Hemoglobin 31.9 pg (27.0-35.0); Mean Corpuscular Volume 93.8 fL (81-100); NEUTROPHILS % (AUTO) 76.5 % (40-74); Platelet Count 194 bil/L (150-400)
--- NOTE | 2016-08-10 18:50 | NUR ---
Alert, oriented to self. Confused, forgetful, impulsive. Bed alarm in place. Sinus rhythm 60-80's. Denies SOB. 99% on 2L NC. Desats to 88% on RA at rest. Occ productive cough with brown sputum, reported to MD. Chest tube DC'd this morning, dressing changed once this shift. 1 PA to BR or BSC. Continent of bowel and bladder, 1 PA to bathroom. Urine clear, pale yellow. No BM since 08/08, miralax given x1. Lethargic, oriented to self. Restless and impulsive, attempting to ambulate independently. MD notified of LOC change, labs and CXR ordered. Epidural for pain control with effective relief per pt. Neck dressing CDI. Int:
[2016-08-11] VITALS (10 sets, daily range): BP systolic 123–165; BP diastolic 60–78; PULSE 60–81; RESP 16–18; O2SAT 92–98
[2016-08-11] MEDS: Sodium Chloride LOK Flush 10 mL Syringe IVFLUSH SCH ×3 (00:38→17:05)
[2016-08-11] MEDS: Heparin 5,000 Unit/mL Inj SUBQ SCH ×3 (00:38→17:05)
--- NOTE | 2016-08-11 04:31 | NUR ---
EPIDURAL / MENTATION Patient a/o x 3 beginning of shift, as noc progressed, she became slightly disoriented, "Am I in a motel right now?" when reminded that she is a patient in the hospital, she states "Oh, yes that is right." Several attempts to self-transfer, not being aware of the epidural tubing, o2 tubing, cpox. Frequent safety checks thru the noc. Epidural infusing 5mL continuous. Bag replaced at approx 2300. Has used the epidural button several times; reports pain is manageable w/ the DIVERSITY INTERN. dressing to mid back reinforced, as edges rolling up slightly. tele NSR 70's IVCD & PVC's. Call light w/in reach. CTM for changes.
[2016-08-11] MEDS: Pantoprazole 20 mg ER24 Tablet PO SCH (06:41)
[2016-08-11] MEDS ORDERED: Potassium Chloride 20 mEq SR Tablet PO ONE ×2 (08:30→12:40)
[2016-08-11] MEDS: Calcium Carbonate (Oyster Shell) 500 mg Tablet PO SCH ×2 (08:34→17:08)
[2016-08-11] MEDS: Omega-3 Fatty Acids 1,000 mg Capsule PO SCH (08:34)
--- NOTE | 2016-08-11 10:21 | PROG NOTE ---
[address] [address] PROGRESS NOTE PATIENT: MARISABEL DIOP : 1935 MR#: [id number] ADMIT: 08/07/2016 JOB ID: [id number] DATE: SUBJECTIVE: An 80-year-old female status post right thoracotomy currently with a thoracic epidural in place running bupivacaine 0.125% with 2 mcg/mL of fentanyl running at a rate of 5 mL an hour. Currently, postop day four, doing well. On a visual analog scale, she complains of 0/10 pain, is ambulating, eating and at baseline cognitively. Her chest tubes are out and with consultation with the surgeon and the patient, it was decided that today would be the day to remove her epidural. OBJECTIVE: Patient is afebrile. Vital signs stable. White count 10. Platelets 194. He is currently on heparin 5000 units subcutaneous three times daily, as well as aspirin. Her epidural site was clean, dry, and intact and she had no focal neurological deficits. I pulled the epidural, the blue tip of the catheter was intact. ASSESSMENT AND PLAN: This will resolve our pain management with this patient. She is doing quite well.
--- NOTE | 2016-08-11 10:36 | PROG NOTE ---
[address] [address] PROGRESS NOTE PATIENT: MARISABEL DIOP : 1935 MR#: [id number] ADMIT: 08/07/2016 JOB ID: [id number] DATE: 08/11/2016 SUBJECTIVE: The patient is seen in followup. She continues to have some sundowning with nighttime confusion. This morning she feels much more calm and alert. She is not complaining of significant pain in the chest. She remains slightly confused about discharge plans regarding whether or not she is safe to go home or if she needs rehab facility. OBJECTIVE: Temperature 37.0, pulse 74, blood pressure 157/77, saturation 96% on 1.5 L nasal cannula. General: She is resting in bed in no acute distress. Neck: No jugular venous distention. Chest: She has good air movement with no crackles. Her right thoracotomy incision is clean with no erythema. Heart: Regular rate and rhythm. No murmurs. Extremities: No edema. Neuro: She is alert and oriented x3 although still does ask some questions showing lack of insight. LABORATORIES: White blood cell count 10.0, hematocrit 34.7, platelets 194, creatinine 0.75, glucose 113. ASSESSMENT AND PLAN: An 80-year-old woman with T2 N0 right lower lobe adenocarcinoma, postoperative day four, status post right thoracotomy with right lower lobectomy and mediastinal lymph node sampling. She is doing well clinically. She continues to have some sundowning. I think she will be safe for discharge from the hospital by tomorrow which is Sunday. The main question in my mind now is if she can go home with Home Health nursing and physical therapy or if she needs to go to a custodial facility. I suspect that she will require a custodial facility placement. I will wait for input today on physical therapy and from social work.
--- NOTE | 2016-08-11 12:46 | NUR ---
POTASSIUM GIVEN AT 1240 WITH MEAL
--- NOTE | 2016-08-11 13:04 | DRSVH ---
PROCEDURE: X-RAY CHEST, TWO VIEWS ([id number]) INDICATIONS: evaluate for pneumothorax, s/p right lower lobecto TECHNIQUE: 2 views of the chest were acquired. COMPARISON: [facility], CR, XR CHEST 1VW (PORTABLE), 08/09/2016, 5:37. [facility], [facility], [facility] CHEST 1VW (PORTABLE), 08/08/2016, 5:25. [facility], CR, XR CHEST 1VW (GEORGI BLE), 08/07/2016, 12:07. [facility], CR, XR CHEST 1VW (PORTABLE), 08/10/2016, 5:55. FINDINGS: Surgical changes and devices: Right pleural drains have been removed. The right axillary surgical cl ips redemonstrated. Cholecystectomy clips. Lungs and pleura: No pneumothorax. Airspace opacity again seen involving the mid right lung and righ t lung base likely related to atelectasis. Left lung is clear. Mediastinum: Mediastinal contours are normal. Heart size is normal. Bones and chest wall: No suspicious bony abnormalities. Soft tissues appear unremarkable. IMPRESSION: 1. Removal of right pleural drains and no pneumothorax is seen. 2. Probable atelectasis within the mid right lung and right lung base. Dictated by: Praveen Fuller Momo Interpreted: Yong Ratliff MD on 08/11/2016 at 11:23 Approved by: Yong Ratliff M.D. on 08/11/2016 at 13:03
--- NOTE | 2016-08-11 14:46 | NUR ---
Social Work: Readiness for Discharge D: Per providers progress note, pt is approaching discharge. REHABILITATION COORDINATOR received order to arrange for SNF. REHABILITATION COORDINATOR reviewed pt's EMR and clinicals; pt has been ambulating 120 feet with PT, SBA with FWW. Recommendation is for home health. Pt does not appear to have any wound care catheter finisher and inspector needs to qualify for SNF. REHABILITATION COORDINATOR met with the pt and spouse at bedside to discuss discharge planning. REHABILITATION COORDINATOR reviewed potential discharge options including SNF and home health. Pt and spouse both feel that the pt is close to her baseline mobility and does not require skilled rehab. They would prefer to discharge home with supportive services from home health. The pt's spouse has used [facility] in the past and this is their preference. Their preference would be to have an RN, PT and bath aid. REHABILITATION COORDINATOR spoke with attending provider, Dr Hollingsworth, via telephone to discuss pt's discharge plan and pt's progress with PT. He was not aware of PT recommendation for HH. He agrees that sending the pt home is the more appropriate option and will place order for REHABILITATION COORDINATOR to arrange for HH services. F2F placed on chart. MD will complete when he comes to round on the pt next. REHABILITATION COORDINATOR will make referral when orders received. A: Pt who is I at baseline and lives with her spouse. P: Anticipate pt to discharge home with home health for RN, PT and PRODUCTION ILLUSTRATOR; pt preference is for [facility]. REHABILITATION COORDINATOR will make referral once orders obtained by . IRMA Vasquez
--- NOTE | 2016-08-11 19:40 | NUR ---
P: Resp, Hemodynamics, Neuro, Nutrition, Skin, Pain I,E: Pt has been on room air all day and sats have been low 90's. She does do her deep breathing and coughing when reminded. She has been in and out of bed many times today more than 10 times. She walked with PT today and did the stairs. She is oriented and communications marketing intern but she sometimes is a little forgetful. She gets up and then when the alarm tells her "do not get up" she sits and waits (usually) for assistance. I have explained to her that this is for her safety and we would like to help her up and walking around while she is in the hospital. Pt is co operative. Pt has eaten well today, although at dinner she was not hungry. I re dressed her chest tube sites as they did get wet in the shower, site looks CDI now. incision has steri strips on it and it looks like it is healing well, no redness and is CDI. Pt denies any pain today. She did state she was uncomfortable, but that is wasn't pain, it was the bed and that she "wants to go home". Pt's was here most of the day and kept her company. Pt states if she goes home her sons can come and help. K was low from last night lab and PO K was given today per .
--- NOTE | 2016-08-11 19:47 | NUR ---
Epidural removed this am Epidural removed by anaesthesia this am at approx 0830hrs.
[2016-08-12] MEDS: Heparin 5,000 Unit/mL Inj SUBQ SCH ×3 (01:06→16:36)
[2016-08-12] MEDS: Sodium Chloride LOK Flush 10 mL Syringe IVFLUSH SCH ×2 (01:07→08:30)
[2016-08-12 02:54] VITALS: BP 177/72; PULSE 63; RESP 16; O2SAT 94
[2016-08-12 05:27] VITALS: PULSE 53
[2016-08-12] MEDS: Pantoprazole 20 mg ER24 Tablet PO SCH (06:37)
--- NOTE | 2016-08-12 07:22 | NUR ---
Mobility Pt up ambulating in hallway. Tolerated well. Steady gait. Denies SOB. Pt is eager to go home.
[2016-08-12 07:40] VITALS: BP 166/66; PULSE 63; RESP 16; O2SAT 94
[2016-08-12] MEDS: Omega-3 Fatty Acids 1,000 mg Capsule PO SCH (09:03)
[2016-08-12] MEDS: Calcium Carbonate (Oyster Shell) 500 mg Tablet PO SCH ×2 (09:03→17:22)
--- NOTE | 2016-08-12 13:41 | PROG NOTE ---
[address] [address] PROGRESS NOTE PATIENT: MARISABEL DIOP : 1935 MR#: [id number] ADMIT: 08/07/2016 JOB ID: [id number] DATE: 08/12/2016 SUBJECTIVE/OBJECTIVE: Patient is now postop day five. She remains afebrile, stable vital signs. She was less confused last night than previously. Nursing reports that she requires to be reminded to deep breathe and cough or she desaturates. On examination, her incision is healing well. Labs: No labs today. IMAGING: Last chest x-ray, August 11, without abnormalities other than atelectasis of the right lung. IMPRESSION AND PLAN: There had been consideration for her to be discharged today with Home Health and close outpatient followup. She feels that it is unsafe for her to go home and her concurs. His health issues prevent him helping her at home. We discussed the option of discharge to long term facility, but their son is expected up this evening or tomorrow morning and hope is that with his help at home that she will be able to be discharged home. I will delay her discharge one day for further evaluation and home safety issues.
[2016-08-12 16:43] VITALS: BP 133/57; PULSE 62; RESP 20; O2SAT 95
--- NOTE | 2016-08-12 19:13 | NUR ---
Activity/drsg change Pt. up and ambulatory in ya using fww, independent. Steady gait observed. Drsg to right side/chest moderately saturated and changed. Pt. also reported pain to this right side, rated 4/10. Given 650mg of po tylenol. Pain med effective. Report given to Clifford SORIA to continue care.
[2016-08-12 20:30] VITALS: BP 146/69; PULSE 74; RESP 18; O2SAT 95
[2016-08-13 00:10] VITALS: BP 139/81; PULSE 134; RESP 22; O2SAT 96
[2016-08-13] MEDS: Heparin 5,000 Unit/mL Inj SUBQ SCH ×2 (00:54→08:21)
--- NOTE | 2016-08-13 03:30 | NUR ---
Transfer Pt transferred to [facility] # [id number]. Report given to the receiving RN. Addendum: 08/13/16 at 0405 by JACOB MOSS RN Correction: pt remains in [facility] # [id number] at this time. Transferred on hold.
[2016-08-13] MEDS: Pantoprazole 20 mg ER24 Tablet PO SCH (06:39)
[2016-08-13] MEDS: Omega-3 Fatty Acids 1,000 mg Capsule PO SCH (08:20)
[2016-08-13] MEDS: Calcium Carbonate (Oyster Shell) 500 mg Tablet PO SCH (08:20)
[2016-08-13 08:30] VITALS: BP 168/79; PULSE 74; RESP 18; O2SAT 98
--- NOTE | 2016-08-13 11:13 | PCM.DISURG ---
Surgical Discharge Instruction Date of Service Aug 13, 2016 Dates of Hospitalization Date of Hospital Admission Aug 07, 2016 at 15:49 Providers Admitting Physician: Anthony Hollingsworth MD Primary Care Physician: Tc Morales MD Attending Physician: Anthony Hollingsworth MD Discharge Diagnosis Discharge Diagnosis Lung cancer Post Operative diagnosis mediastinoscopy, right lower lobectomy Diet Discharge Diet: No restrictions Activity Discharge Activity-General: Try not to overdue, Be up and about Dressing and Incisional Care Dressing Care: Keep dressing clean, dry & intact Hygiene: May shower Additional Instructions Additional Instructions Home health RN every other day for bandage change and evaluation, PT evaluation and treatment 2 x weekly, Bath Aid daily Follow Up Plan Follow Up Plan follow up with Dr. Hollingsworth in 2-4 weeks or per instructions from his office Call your provider for: Fever, Shortness of breath Giuliano Simpson MD Aug 13, 2016 11:10
[2016-08-13] MEDS ORDERED: HYDR-4003 PO (11:21)
--- NOTE | 2016-08-13 12:11 | NUR ---
P: Pain I: Pt has pain 4/10 and medicated with Tylenol with good pain relief. Left chest dressing dry and intact. Up in ya ambulating with walker without difficulty. Voiding qs. Room air with sats stable. VSS. No tele and no IV site. E: Stable S: Alert and oriented. Discharge instruction with care notes and RX given to pt. Pt indicates understanding of discharge instructions. Spouse is also present for instructions. Pt discharged home with spouse driving.
--- NOTE | 2016-08-13 14:47 | PROG NOTE ---
[address] [address] PROGRESS NOTE PATIENT: MARISABEL DIOP : 1935 MR#: [id number] ADMIT: 08/07/2016 JOB ID: [id number] DATE: 08/13/2016 NOTE: She has been afebrile, stable vital signs throughout the previous 24 hours. She was less confused last night than she has been since surgery. Her and she feel that she is strong enough and can manage at home now that their son is up here. We will discharge her with home health including daily bath aides, PT three times a week, and RN visits every other day for wound check. Both incisions are in good shape on the day of discharge.
--- NOTE | 2016-08-13 15:19 | NUR ---
Social Work Note: Discharge Data& Assessment: EMR reviewed. Per pt is medically ready to discharge home via POV with [facility] PT, RN and [facility]EDER to follow. Guera Stuart is a 80 year old female admitted on 08/07/2016 for right lower lobe lung cancer. Per pt is medically improved and ready to discharge. PT continues to recommend Home Health Services. RHIANNON received order from to help arrange Home Health Services. Home Health list has been provided to pt and pt . Pt explained she has had [facility] in the past and would like their services again. Referral made to [facility], RHIANNON spoke with Ana who accepted pt and picked up F2F. Pt transporting pt home today. Pt and pt deny any other needs. Pt is now on room air. No other discharge needs identified. All updated and agreeable to plan. Plan: Per pt is medically ready to discharge home via POV with [facility] PT, RN and SINTER FEEDER to follow. Pt and pt deny any other needs. No other discharge needs identified. All updated and agreeable to plan. IRMA Basurto
--- NOTE | 2016-08-14 16:13 | PCM.DC.SUR ---
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 Staging showed no evidence of mediastinal lymphadenopathy or distant disease. Pulmonary function testing demonstrated an FEV1 of 1.2 L, and she had a normal ejection fraction on stress echo. She was offered referral to a tertiary care center for minimally invasive pulmonary resection, but she elected to stay in the [facility], and was offered cervical mediastinoscopy, right thoracotomy with right lower lobectomy. After discussion of risks and benefits, she agreed to proceed. Physical exam: Temperature 37.0, pulse 74, blood pressure 157/77, saturation 96% on 1.5 L nasal cannula. General: She is resting in bed in no acute distress. Neck: No jugular venous distention. Chest: She has good air movement with no crackles. Her right thoracotomy incision is clean with no erythema. Heart: Regular rate and rhythm. No murmurs. Extremities: No edema. Neuro: She is alert and oriented x3 although still does ask some questions showing lack of insight. Consultants: Anesthesiology Hospital Course: The patient was taken to the operating room for a planned cervical mediastinoscopy with biopsy, right thoracotomy, right lower lobectomy. Please refer to the operative report for details of the surgical procedure. The patient tolerated the procedure well and was transferred to her hospital room where she remained for the balance of her hospital stay. The 2 chest tubes were serially removed over the next couple days without incident. She did have some sundowning and concomitant confusion for approximately 2 days postoperatively and was improved by adjusting of her medications. Although she continued to exhibit a satisfactory post operative course, her family did voice some concerns as to whether she could receive adequate care at home and she then remained in the hospital an additional day while the issues were sorted out and her son deciding to come to their house to assist in her home care. On postoperative day number 6 she was found to be exhibiting good pain control with good respiratory function, good wound healing and no evidence of infection. She was then discharged to home. Pathology: Level 7 lymph node excision-negative for metastatic carcinoma. Lymph node, level 10R excision-negative for metastatic carcinoma. Lymph node, level 4L excision-negative for metastatic carcinoma. Lymph node, level 4R excision-negative for metastatic carcinoma. Lymph node, level 2R excision-negative for metastatic carcinoma. Lymph node, level 2L excision-negative for metastatic carcinoma. Lymph node, level 11R excision-negative for metastatic carcinoma. Right Lower Lobe, Lobectomy: Invasive carcinoma with following features: Histologic type: Invasive adenocarcinoma Histologic grade: Well to moderately differentiated Tumor size: 3.2 x 2.6 x 2.0 cm Tumor site: Right lower lobe, peripheral Tumor extension: Confined to lung Lymphovascular invasion: Not identified Visceral pleura: Grossly puckering present, microscopically tumor is within 1 mm to the inked pleural visceral surface suspicious for invasion Specimen Integrity: Intact Perineural Invasion: Absent Margins Bronchial: negative Vascular: negative Parenchymal: negative Lymph nodes: Seven lymph nodes, negative for metastatic carcinoma AJCC: pT2a pN0 Molecular studies: EGFR: performed and negative ALK-1: performed and negative ROS-1: performed and negative Additional findings: None Disposition: Stable to home Follow-up Plan: Discharge Diet: No restrictions Discharge Activity-General: Try not to overdue, Be up and about Dressing Care: Keep dressing clean, dry & intact Hygiene: May shower Additional Instructions Home health RN every other day for bandage change and evaluation, PT evaluation and treatment 2 x weekly, Bath Aid daily Follow Up Plan follow up with Dr. Hollingsworth in 2-4 weeks or per instructions from his office Call your provider for: Fever, Shortness of breath Amlodipine (Amlodipine) 10 Mg Tablet 10 MG PO DAILY (Reported) Aspirin (Aspirin) 325 Mg Tablet 325 MG PO DAILY (Reported) Atorvastatin (Lipitor) 20 Mg Tablet 40 MG PO DAILY (Reported) Calcium Carbonate/Vitamin D3 (Calcium 500 + Vit D Caplet) 1 Each Tablet 1 EACH PO BID (Reported) Cholecalciferol (Vitamin D3) (Vitamin D3) 1,000 Unit Tab.chew Unknown Dose PO DAILY (Reported) Hydrocodone-Acetaminophen 5-325 mg (Hydrocodone-Acetaminophen 5-325 mg) 1 Each Tablet 1-2 TABLET PO Q6 PRN PRN For Mild Pain Metoprolol Tartrate (Metoprolol Tartrate) 100 Mg Tablet 100 MG PO BID (Reported ) Multivitamin (Once Daily) 1 Each Tablet 1 EACH PO DAILY (Reported) [place]-3/Dha/Epa/Fish Oil (Fish Oil 1,000 mg Softgel) 1 Each Capsule 2 EACH PO DAILY (Reported) 2 CAPSULES DAILY Omeprazole (Omeprazole) 20 Mg Tablet.dr 20 MG PO DAILY (Reported) Triamterene/HCTZ 37.5-25 mg (Triamterene/HCTZ 37.5-25 mg) 1 Each Tablet 0.5 TABLET PO DAILY (Reported) copies to: Tc Morales MD; Jazz Du MD, Samuel L PA-C Aug 14, 2016 16:13
== END 2016-08-13 11:54 | disposition home health service (06) | DRG 165 ==
LOC: SAS 05:37 → PCC 15:49
PROVIDERS: ADMIT Student in an Organized Health Care Education/Training Program; ATTEND Student in an Organized Health Care Education/Training Program
PROC: 0BTF0ZZ Resection of Right Lower Lung Lobe, Open Approach (ICD-10-PCS; principal; 2016-08-07 07:30)
PROC: 07B74ZX Excision of Thorax Lymphatic, Percutaneous Endoscopic Approach, Diagnostic (ICD-10-PCS; 2016-08-07 07:30)
DX: C34.31 Malignant neoplasm of lower lobe, right bronchus or lung (principal); I10 Essential (primary) hypertension; Z87.891 Personal history of nicotine dependence; Z85.3 Personal history of malignant neoplasm of breast; Z90.11 Acquired absence of right breast and nipple; Z79.82 Long term (current) use of aspirin; R41.0 Disorientation, unspecified

== ENCOUNTER 2016-08-25 00:17 | Inpatient (IN) | payer MEDICARE, OTHER ==
[~2016-08-25] VITALS: Ht 154.9 cm; Wt 68.0 kg
[2016-08-25] VITALS (11 sets, daily range): BP systolic 109–173; BP diastolic 48–80; PULSE 78–107; RESP 18–25; O2SAT 95–97
[~2016-08-25 00:17] MED LIST changes: +HYDR-4003 PO; -Lactated Ringer's 1,000 ML IV ONE
--- NOTE | 2016-08-25 00:29 | ED.REPORT ---
HPI-Dyspnea / Wheezing Date of Service Aug 25, 2016 ED Provider: Keenan Rose MD An 80 year old female with a history of stress echo in 07/2016, hypertension, hyperlipidemia, chronic productive cough, diverticulitis, CVA x2 and recent lobectomy is brought to the ED via EMS due to chills. The pt woke at 22:45 tonight with shivering chills and slight shortness of breath. She also admits to dysuria and frequency for two days, but denies abnormal productive cough, increased chest pain, nausea or vomiting. The pt had a lobectomy performed on but reports no complications thus far. Nursing Notes Stated Complaint: CHILLS Nursing Notes Reviewed: Yes Allergies: Coded Allergies: Penicillins (Verified Allergy, Severe, "SEVERE REACTION", 08/04/16) lisinopril (Verified Adverse Reaction, Severe, ITCHING, DIARRHEA, 08/04/16) niacin (Verified Adverse Reaction, Severe, ITCHING, 08/04/16) Scheduled Amlodipine (Amlodipine) 10 Mg Tablet 10 MG PO DAILY Aspirin (Aspirin) 325 Mg Tablet 325 MG PO DAILY Atorvastatin (Lipitor) 20 Mg Tablet 40 MG PO DAILY Calcium Carbonate/Vitamin D3 (Calcium 500 + Vit D Caplet) 1 Each Tablet 1 EACH PO BID Cholecalciferol (Vitamin D3) (Vitamin D3) 1,000 Unit Tab.chew Unknown Dose PO DAILY Metoprolol Tartrate (Metoprolol Tartrate) 100 Mg Tablet 100 MG PO BID Multivitamin (Once Daily) 1 Each Tablet 1 EACH PO DAILY [place]-3/Dha/Epa/Fish Oil (Fish Oil 1,000 mg Softgel) 1 Each Capsule 2 EACH PO DAILY 2 CAPSULES DAILY Omeprazole (Omeprazole) 20 Mg Tablet.dr 20 MG PO DAILY Triamterene/HCTZ 37.5-25 mg (Triamterene/HCTZ 37.5-25 mg) 1 Each Tablet 0.5 TABLET PO DAILY General Time Seen by MD: 00:27 Chief Complaint Other (Chills) Hx Obtained From: Patient, EMS Arrived By: Ambulance Sudden in Onset?: Yes Onset Occurred: 1 - 4 hours ago Symptom Duration: Since onset Recent Healthcare: Recent doctor visit, Recent hospitalization Similar Sx Previous: No Past Medical History Past Medical History Notes: stress echo 07/2016, EF 65-70% Past Medical History hypertension hyperlipidemia chronic productive cough diverticulitis CVA x2 hemorrhoids colon polyps ulcerative colitis arthritis depression quit 30 years ago breast cancer Past Surgical History right breast mestectomy lobectomy cataract surgery back right knee scope Reports: Appendectomy, Cholecystectomy Smoking History Former Smoker (quit 30 years ago) Social History Other Social History: Good social support, Ambulatory Status Independent Review of Systems Review of Systems Note: denies abnormal productive cough denies increasing chest pain Constitutional: Reports: Chills Respiratory: Reports: Shortness of breath Musculoskeletal: Denies: Back pain, Neck pain Skin: Denies Rash Complete sys rev & neg: except as marked. Physical Exam Initial Vital Signs Vital Signs (First) Date Time Temp Pulse Resp B/P Pulse Ox O2 Delivery O2 Flow Rate FiO2 08/25/16 00:38 37.1 107 25 152/68 96 Room Air Initial VS: Reviewed General/Constitutional: Awake, Alert Neck: Atraumatic, Supple, Full range of motion, No JVD Respiratory / Chest: Breath sounds NL, Breath sounds = bilat, No rales, No rhonchi, No wheezing large right lateral thorax incision, steri stripped and healing well without erythema, induration, or pus drainage no decreased breath sounds mild respiratory distress with tachypnea and use of accessory muscles Cardiovascular: Heart rate NL, Regular rhythm, Heart sounds NL ENT: Atraumatic, Airway patent, Mucous membranes moist Abdomen: Atraumatic, Soft, Non-tender Back: Atraumatic, Full range of motion Lower Extremity / Pelvis / MS: Atraumatic, Full range of motion Skin: Color NL, No rash, Warm, Dry Neurologic: Oriented X3, Speech NL, No motor deficits, No sensory deficits Head / Eyes: Atraumatic, Normocephalic, PERRL, EOMI Upper Extremity / MS: Atraumatic, Full range of motion Psychiatric: Affect NL, Mood NL Interpretation & Diagnostics Lab Results Interpretation Result Diagram: 08/25/16 0825 08/25/16 0125 Test 08/25/16 00:43 08/25/16 01:25 Urine Color Yellow (YELLOW) Urine Appearance Clear (CLEAR,HAZY) Urine pH 6.0 (5.0-8.0) Urine Specific [place] 1.020 (1.003-1.035) Urine Protein 100mg/dL (NEG,TRACE) Urine Glucose (UA) Negativemg/dL (NEGATIVE) Urine Ketones Negativemg/dL (NEGATIVE) Urine Occult Blood Moderate (NEGATIVE) Urine Nitrite Negative (NEGATIVE) Urine Bilirubin Negative (NEGATIVE) Urine Urobilinogen Normalmg/dL (NORMAL) Urine Leukocyte Esterase Small (NEGATIVE) Urine RBC 11-50/hpf (0-2) Urine WBC 11-50/hpf (0-5) Urine Epithelial Cells Moderate/hpf (NONE-MOD) Urine Crystals None seen (NONE SEEN) Urine Bacteria Few/hpf (NONE-FEW) Urine Hyaline Casts None/lpf (NONE) Urine Granular Casts None seen (NONE SEEN) Urine Waxy Casts None seen (NONE SEEN) Urine Red Blood Cell Casts None seen (NONE SEEN) Urine White Blood Cell Casts None seen (NONE SEEN) Urine Mucus None seen (None Seen) Urine Trichomonas None seen (NONE SEEN) Urine Yeast None (NONE SEEN) Urinalysis Comment None Urine Culture Reflexed Indicated D-Dimer 3.57mg/L FEU (<0.50) Lactic Acid Level 1.6mmol/L (0.4-2.0) Procalcitonin 0.27ng/mL (0.00-0.08) ECG Interpretation ECG Interpretation: sinus tachycardia with a rate of 103 ventricular trigemony probable left atrial enlargement probable LVH inferior infarct, old Time: 00:46 Interpreted by: ED physician ECG Interpretation: normal sinus rhythm with a rate of 96 ventricular premature complex probable RVH inferior infarct, old Time: 03:43 Interpreted by: ED physician X-Ray Chest Interpretation Chest Xray Interpretation: normal post-operative without infiltrate or effusion Interpretation / Wet Read by: Wet read ED physician Re-Eval/Medical Decision Med Decision/Clinical Course 80-year-old female who felt poorly and had shaking riders today. She had a recent right lung lobectomy. The incision appears to be healing well without evidence of infection. There is no pneumonia, pleural effusion, or pneumothorax. She does have a urinary tract infection. She was given first dose of cefepime IV and she will be admitted to the hospitalist service. Source of Hx: Old records Re-Evaluation/Progress #1: Time of Eval: 01:56 Patient Status: Condition improved Re-Evaluation/Progress Note: Pt rechecked, who is resting comfortably. Lab and radiology results are addressed. Re-Evaluation/Progress #2: Time of Eval: 03:18 Re-Evaluation/Progress Note: Pt rechecked, who is stable. The diagnosis and plan for admission are discussed. The pt understands and agrees with the plan. All questions are addressed at this time. Consultation : Referral / Consult Name: Winsome Walden DO Consulted With: Hospitalist Call Returned at: 03:14 Dethistler Operator: Agrees with eval, Agrees with plan, Accepts admit Note: Spoke with Dr. Walden, hospitalist, regarding pt's case. Dr. Walden agrees with the evaluation and agrees to admit the pt. Counseled Regarding: Diagnosis, Lab results, Need for admission Discharge & Departure Impression: Primary Impression: UTI (urinary tract infection) Urinary tract infection type: site unspecified Hematuria presence: without hematuria Qualified Code: N39.0 - Urinary tract infection, site not specified Additional Impressions: Elevated troponin Hypomagnesemia Hypokalemia Disposition: ADMITTED TO HOSPITAL Discharge Condition All VS Reviewed: Yes Condition: Stable Referrals: Tc Morales MD (PCP) Zahra Attestation Portions of this note were transcribed by Bisi Rodriguez. I, Dr. Rose personally performed the history, physical exam and medical decision-making; I reviewed and confirmed the accuracy of the information in the transcribed note. Signed by: Zahra Leon, 08/25/2016 and 0403. copies to: Tc Morales MD, Howard L MD Aug 25, 2016 00:29 BISI RODRIGUEZ Aug 25, 2016 01:00 (0.4-2.0) Calcium Level 8.6mg/dL (8.5-10.1) Magnesium Level 0.9mg/dL (1.6-2.6) Total Bilirubin 0.5mg/dL (0.0-1.2) Aspartate Amino Transf (AST/SGOT) 17U/L (0-50) Alanine Aminotransferase (ALT/SGPT) 20U/L (0-32) Alkaline Phosphatase 103U/L (25-165) Troponin T 0.018ug/L (0.0-0.011) Total Protein 6.2g/dL (6.4-8.4) Albumin 3.3g/dL (3.4-5.0) ECG Interpretation ECG Interpretation: sinus tachycardia with a rate of 103 ventricular trigemony probable left atrial enlargement probable LVH inferior infarct, old Time: 00:46 Interpreted by: ED physician ECG Interpretation: normal sinus rhythm with a rate of 96 ventricular premature complex probable RVH inferior infarct, old Time: 03:43 Interpreted by: ED physician X-Ray Chest Interpretation Chest Xray Interpretation: normal post-operative without infiltrate or effusion Interpretation / Wet Read by: Wet read ED physician Re-Eval/Medical Decision Source of Hx: Old records Re-Evaluation/Progress #1: Time of Eval: 01:56 Patient Status: Condition improved Re-Evaluation/Progress Note: Pt rechecked, who is resting comfortably. Lab and radiology results are addressed. Re-Evaluation/Progress #2: Time of Eval: 03:18 Re-Evaluation/Progress Note: Pt rechecked, who is stable. The diagnosis and plan for admission are discussed. The pt understands and agrees with the plan. All questions are addressed at this time. Consultation : Referral / Consult Name: Winsome Walden DO Consulted With: Hospitalist Call Returned at: 03:14 Dethistler Operator: Agrees with eval, Agrees with plan, Accepts admit Note: Spoke with Dr. Walden, hospitalist, regarding pt's case. Dr. Walden agrees with the evaluation and agrees to admit the pt. Counseled Regarding: Diagnosis, Lab results, Need for admission Discharge & Departure Impression: Primary Impression: UTI (urinary tract infection) Urinary tract infection type: site unspecified Hematuria presence: without hematuria Qualified Code: N39.0 - Urinary tract infection, site not specified Additional Impressions: Elevated troponin Hypomagnesemia Hypokalemia Disposition: ADMITTED TO HOSPITAL Discharge Condition All VS Reviewed: Yes Condition: Stable Referrals: Tc Morales MD (PCP) Zahra Attestation Portions of this note were transcribed by Bisi Rodriguez. I, Dr. Rose personally performed the history, physical exam and medical decision-making; I reviewed and confirmed the accuracy of the information in the transcribed note. Signed by: Zahra Leon, 08/25/2016 and 0403. copies to: Tc Morales MD, Keenan Bone MD Aug 25, 2016 00:29 BISI RODRIGUEZ Aug 25, 2016 01:00
[2016-08-25] MEDS ORDERED: Cefepime Inj 2,000 MG in Dextrose 5% Minibag Plus 100 ML IV ONE (00:40)
[2016-08-25] MEDS ORDERED: 0.9% Sodium Chloride 1,000 ML IV ONE (01:05)
[2016-08-25 01:24] LABS: APPEARANCE,URINE CLEAR (CLEAR,HAZY); COLOR,URINE YELLOW (YELLOW); OCCULT BLOOD,URINE MODERATE (NEGATIVE); UROBILINOGEN,URINE NORMAL (NORMAL)
[2016-08-25 01:38] LABS: BASOPHILS % (AUTO) 0.2 % (0-3); EOSINOPHILS % (AUTO) 0.2 % (0-5); MONOCYTES % (AUTO) 2.1 % (4-12); Mean Corpuscular Hemoglobin 30.7 pg (27.0-35.0); Mean Corpuscular Volume 92.5 fL (81-100); NEUTROPHILS % (AUTO) 94.8 % (40-74); Platelet Count 212 bil/L (150-400)
[2016-08-25 02:32] LABS: TROPONIN T 0.018 ug/L (0.0-0.011)
[2016-08-25 02:37] LABS: Magnesium 0.9 mg/dL (1.6-2.6)
[2016-08-25] MEDS ORDERED: Magnesium Sulf 4 Gm/100 mL H2O 4 GM in IV Premix 1 EACH IV ONE (02:40)
[2016-08-25] MEDS ORDERED: Potassium Chloride 20 mEq SR Tablet PO ONE (03:20)
[2016-08-25] MEDS ORDERED: Alum-Mag Hydrox-Simeth 30 mL Suspension PO PRN (03:50)
[2016-08-25] MEDS ORDERED: Ondansetron 2 mg/mL 2 mL Inj IVPUSH PRN (03:50)
[2016-08-25] MEDS ORDERED: Polyethylene Glycol (PEG) 17 Gm Powder PO PRN (03:50)
--- NOTE | 2016-08-25 04:21 | PCM.HPMED ---
Subjective Date of Service Aug 25, 2016 Primary Provider: Admitting Physician: Winsome Walden DO Primary Care Physician: Tc Morales MD Attending Physician: Winsome Walden DO Admit Status: From the Emergency Department Chief Complaint: Chills with dysuria History of Present Illness: The patient is an 80-year-old female with past medical history remarkable for recent right lower lobectomy for adenocarcinoma of the lung, ulcerative colitis , history of CVA, and breast cancer presents with 1 day of worsening subjective chills. The patient states that she woke up this morning freezing cold and could not get warm all day. The patient denies fever or sweating. The patient admits to a recent few day history of pain with urination notably burning in her groin, and increased urgency and frequency of urination. She denies blood in her urine or changes in color or consistency of her urine. The patient denies any past history of kidney infections or urinary tract infections and is unsure of the last time she has had antibiotics. The patient denies any chest pain, shortness of breath, worsening productive cough. The patient states that she has a chronic cough and that her phlegm has remained clear. The patient was recently hospitalized August 07 through August 14 for a planned right lower lobectomy for right lower lobe adenocarcinoma of the lung. Review of prior hospital records indicate the patient suffered no complications and was doing well within days of her lobectomy however the patient felt uncomfortable being discharged home with her to home health 5 days after surgery so she was monitored a few additional days. Review of Systems: A comprehensive review of systems was completed and all are negative except for what is included in the history of present illness. Allergies Coded Allergies: Penicillins (Verified Allergy, Severe, "SEVERE REACTION", 08/04/16) lisinopril (Verified Adverse Reaction, Severe, ITCHING, DIARRHEA, 08/04/16) niacin (Verified Adverse Reaction, Severe, ITCHING, 08/04/16) Home Medications Amlodipine 10 MG PO DAILY Aspirin 325 MG PO DAILY Atorvastatin 40 MG PO DAILY Calcium Carbonate/Vitamin D3 1 EACH PO BID Cholecalciferol 1,000 Unit Tab.chew Unknown Dose PO DAILY Metoprolol Tartrate 100 MG PO BID Multivitamin 1 EACH PO DAILY Fish Oil 1,000 mg 2 CAPSULES DAILY Omeprazole 20 MG PO DAILY Triamterene/HCTZ 37.5-25 mg 0.5 TABLET PO DAILY Hydrocodone-Acetaminophen 5-325 mg 1-2 TABLET PO Q6 PRN PRN For Mild Pain PMH hypertension hyperlipidemia diverticulitis CVA x2, left frontal CVA in 10/14 hemorrhoids colon polyps Microcytic/ulcerative colitis Colonic hyperplastic polyps Rheumatoid arthritis depression breast cancer Herniated intervertebral disks stress echo 07/2016, EF 65-70% Adenocarcinoma of the right lower Lung treated with lobectomy Surgical History right breast mastectomy Right lower lobectomy cataract surgery right knee scope Appendectomy Cholecystectomy Family History Father had a CVA reportedly in his 80s Mother had congestive heart failure in her 70s Sister had colon cancer Brother had coronary artery disease and at 60 Social History Occupation: retired Hx Alcohol Use: Yes (OCCAS) Hx Substance Use: No Hx Tobacco Use: Yes (Quit 30 years ago but smoked 1PPD x 20 years prior to that ) Smoking Status: Former Smoker (quit 30 years ago) Living Arrangement: with Family Exam Vital Signs Vital Sign - Last Date Time Temp Pulse Resp B/P Pulse Ox O2 Delivery O2 Flow Rate FiO2 08/25/16 04:00 96 22 121/78 95 Room Air 08/25/16 00:38 37.1 Intake and Output 08/24/16 08/24/16 08/25/16 Cumulative From/Thru 15:00 23:00 07:00 08/25/16 00:38 - 08/25/16 01:00 Intake Total 999 ml 999 ml Balance 999 ml 999 ml Intake IV Total 999 ml 999 ml Exam General: well-nourished elderly female appearing approximately stated age, alert and cooperative in no acute distress Eyes: Pupils equal round and reactive to light, extraocular motion intact, anicteric sclera, noninjected conjunctiva HENT: Normocephalic, atraumatic. Moist mucous membranes without central cyanosis oropharynx clear without cobblestoning mucosa Neck: supple with full range of motion. No Thyromegaly or JVD noted Cardiovascular: Regular rate and rhythm, without murmurs rubs or gallops noted Chest & Lungs: Clear to auscultation bilaterally with mild decreased breath sounds noted in the right lower lung roberto without wheezing rales or rhonchi noted, noted pain on palpation of right thoracic area consistent with prior thoracotomy for right lower lobectomy Abdomen: On initial palpation of right lower quadrant patient jumped as if painful however on repeat palpation patient denies pain, nontender in all quadrants, Non-distended, No masses, Normoactive bowel tones, Soft. Small hematomas in lower abdomen consistent with subcutaneous heparin prior hospitalization Musculoskeletal: No swollen or erythematous joints Extremities: No cyanosis, clubbing, or edema noted, pulses intact bilaterally at radial and dorsalis pedis Skin: Warm and dry Neurological: Alert, oriented 3, nonfocal neurologic assessment, patient able to move all extremities spontaneously Psych: Normal mood and affect. Lab and Diagnostics Result Diagram: 08/25/1612408/25/16124 X-Rays, CTs and MRIs Chest x-ray shows a possible rib fracture at sixth rib on the right consistent with possible right-sided thoracotomy for recent right lower lobectomy however fails to reveal any acute cardiopulmonary processes Assessment & Plan The patient is an 80-year-old female with past medical history remarkable for recent right lower lobectomy for adenocarcinoma of the lung, ulcerative colitis , history of CVA, and breast cancer presents with 1 day of worsening subjective chills. # Sepsis, acute, POA - Patient is SIRS positive with tachycardia of 107, respiratory rate of 25, temperature of 37.1, white blood cell count of 9.4 - Patient has blood cells of 9.4 with significant neutrophil predominance making bacterial infection possible - Pro calcitonin of 0.27 and lactic acid of 1.6 - Patient was given 1 L of normal saline IV fluids - Source of infection appears to be UTI described below - Patient does have back pain that is chronic in nature and does not appear to be related to possible kidney infection at this time however is worse than it has been recently, neuro evaluation is negative for focal deficits and patient denies neurologic change # Probable urinary tract infection - Patient presents with subjective chills and worsening dysuria and increased urgency and frequency of urination. - Urinary analysis appears contaminated with moderate epithelial cells, and few bacteria however there are 11-50 WBCs seen, small leukocyte esterase and given symptoms cannot rule out urinary tract infection - Chest x-ray fails to reveal any acute cardiopulmonary process and patient denies worsening cough, chest pain or shortness of breath, without signs of increased oxygen requirements - Cefepime started in emergency department given patient's recent hospitalization and surgery with likely but uncertain source of infection - Blood cultures and urine cultures ordered and pending # Acute hypokalemia - Potassium of 3.0 on admission - Patient given 20 mEq KCl in ED - Patient started on normal saline with 20 mEq at 100 mils per hour - Regular diet with additional 20 mEq KCl with meals # Elevated troponins of unknown significance - Troponin at admission 0.018 - Patient does not have chronic kidney disease to explain mild bump in troponin , and patient denies nausea vomiting, shortness of breath, chest pain of possible ACS - Given tachycardia at presentation possibly due to demand ischemia from sepsis type picture - Troponins to be drawn every 6 and trended until normal # Recent right lower lobectomy - Section records indicate that the patient was recently seen August 21 for postsurgical evaluation and cleared for follow-up in 1 week - Wound care consul ordered - Incentive spirometry - Follow up as an outpatient # Chronic hypertension - Continue outpatient Metoprolol tartrate 100 mg twice a day - Continue outpatient amlodipine 5 mg daily -Holding outpatient Triamterene hydrochlorothiazide given patient was hypokalemic requiring repletion # Chronic hyperlipidemia - Continue outpatient atorvastatin 40 mg daily # History of multiple cerebrovascular accidents last in 2011 - Continue outpatient full dose aspirin # Gastroesophageal reflux disease - Continue outpatient PPI therapy - Pantoprazole 20 mg daily DVT prophylaxis: Heparin 5000 units 3 times a day, prior hospitalization was consulted prior to initiation of DVT prophylaxis GI prophylaxis: Pantoprazole CODE STATUS: Full Patient is admitted to inpatient status with expected length of stay greater than to midnights given presenting symptoms, likely diagnosis, possible complications and required treatments. Pain Evaluation: Adequate Pain Control GI Prophylaxis: Proton Pump Inhibitor VTE Prophylaxis Indicated: Meets Criteria for Anticoag Therapy VTE Prophylaxis: Sub-Q Heparin (Unfractionated), SCDs VTE Mechanical Devices: Intermittant Pneumatic CD Resuscitation Status: CPR: Attempt Resuscitation Attending Statement The patient was seen and examined together with house staff on 08/25/2016 and I agree with the history, exam and plan as outlined in the note above. Matty Zavala DO Aug 25, 2016 04:21 Winsome Walden DO Aug 25, 2016 06:11
--- NOTE | 2016-08-25 04:42 | NUR ---
Admission Pt alert/oriented x3 and arrived on [facility] in a wheelchair. Mag infusing. Pt able to ambulate onto the scale and onto the bed with a steady gait. Pt oriented to bed controls, television, call light, and bathroom. Pt denies chest pain, shortness of breath, n/v and abd pain. Pt c/o back pain 07/12. MD here assessing pt right now. Call light within reach. Care continues.
--- NOTE | 2016-08-25 08:04 | DRSVH ---
PROCEDURE: X-RAY CHEST ONE VIEW, PORTABLE ([id number]) INDICATIONS: chiils, prev lobectomy TECHNIQUE: One view of the chest was acquired. COMPARISON: 08/11/2016 FINDINGS: Surgical changes and devices: Right-sided surgical clips... Lungs and pleura: No pneumothorax. Minimal blunting right costophrenic angle, probable scarring/atele ctasis at the right lung base. Mediastinum: Mild tracheal shift to the right, indicating right-sided volume loss. Mediastinal conto urs appear normal. Heart size is normal. Aortic calcifications. Bones and chest wall: No suspicious bony lesions. There is a fracture of the right sixth posterior r ib medially , present previously. Overlying soft tissues appear unremarkable. IMPRESSION: 1. Chronic volume loss and scarring/atelectasis right hemithorax secondary to history of lobectomy. P ossibility of underlying pneumonia/aspiration cannot be excluded. Dictated by: Raman Montgomery M.D. on 08/25/2016 at 7:58 Approved by: Raman Montgomery M.D. on 08/25/2016 at 8:02
[2016-08-25] MEDS: Potassium Chloride 20 mEq SR Tablet PO SCH (08:11)
[2016-08-25] MEDS: Pantoprazole 20 mg ER24 Tablet PO SCH ×2 (08:11→21:00)
[2016-08-25] MEDS: 0.9% NaCl + KCl 20 mEq/L 1,000 ML IV SCH ×2 (08:14→21:00)
[2016-08-25 08:37] LABS: BASOPHILS % (AUTO) 0.2 % (0-3); EOSINOPHILS % (AUTO) 1.7 % (0-5); MONOCYTES % (AUTO) 3.1 % (4-12); Mean Corpuscular Hemoglobin 30.7 pg (27.0-35.0); Mean Corpuscular Volume 90.9 fL (81-100); Platelet Count 252 bil/L (150-400)
--- NOTE | 2016-08-25 09:14 | DRSVH ---
PROCEDURE: CT ANGIO CHEST PULMONARY EMBOLISM ([id number]) INDICATIONS: suspected PE TECHNIQUE: After the administration of intravenous contrast, 2 mm thick sections acquired from the pulmonary api annette to the posterior costophrenic angles. 3-dimensional maximum intensity projection (MIP) coronal a nd sagittal reformats were then acquired through the thorax. For radiation dose reduction, the follo wing was used: automated exposure control, adjustment of mA and/or kV according to patient size. COMPARISON: [facility], CT, CT CHEST W CON, 06/27/2016, 15:43. FINDINGS: Image quality: Excellent. Pulmonary arteries: A discrete filling defect is present within the peripheral aspect of the right ma in pulmonary artery. There is likely propagation of thrombus within the medial basal segment of the r ight lower lobe. No other pulmonary embolus. Lungs and pleura: There is a loculated appearing low-density pleural fluid collection at the right l mary base. The left lung is clear. No pneumothorax. There is mild centrilobular emphysema at the apice s. Mediastinum: Heart size is normal, without pericardial effusion. There is no leftward interventricul ar septal bowing to suggest right heart strain. No mediastinal or hilar adenopathy. Thoracic aorta i s normal in caliber and enhancement. Dense atheromatous calcifications are present at the aortic arch . The inferior esophagus appears circumferentially thickened with a small hiatal hernia. Bones and chest wall: Patient is status post recent right thoracotomy. Postsurgical changes are note d in the lateral right chest wall. No suspicious bony lesions. Ribs and thoracic spine appear intact throughout. Thyroid gland is unremarkable. No axillary or supraclavicular adenopathy. Patient is status post right axillary michelle dissection. Abdomen: Visualized upper abdominal solid organs appear normal in the early arterial phase of enhanc ement. IMPRESSION: 1. Occlusive right pulmonary embolus within the medial basal segment of the right lower lobe. No inte rventricular septal bowing to suggest right heart strain. This finding was discussed with Dr. Walter at 9:05 AM on 08/25/16. 2. Loculated appearing low-density right pleural effusion. 3. Circumferential distal esophageal wall thickening and hiatal hernia. Dictated by: Coral Austin M.D. on 08/25/2016 at 9:02 Approved by: Coral Austin M.D. on 08/25/2016 at 9:12
[2016-08-25 10:06] LABS: Creatine Kinase 42 U/L (21-215); Magnesium 2.1 mg/dL (1.6-2.6); Phosphorus 3.1 mg/dL (2.5-4.9)
[2016-08-25] MEDS: cefTRIAXone Inj 2,000 MG in Dextrose 5% Minibag Plus 50 ML IV SCH (10:37)
--- NOTE | 2016-08-25 12:45 | DRSVH ---
[facility] [address] [place] [address] Echocardiogram Report Name: Nelda DIOP Study Date: 08/25/2016 Height: 61 in Hospital Exam Location: [facility] Weight: 148 lb Gender: Female BSA: 1.7 m2 : 1935 Age: 80 yrs BP: 125/80 mmHg Reason For Study: Elevated Troponin Ordering Physician: HOSPITALIST [facility] Performed By: Luke Tenorio Referring Physician: SONJA DICKEY Interpretation Summary The ejection fraction is estimated to be 60-65%. Left ventricular systolic function is normal without focal wall motion abnormalities. There is no pericardial effusion. Procedure: A two-dimensional transthoracic echocardiogram with color flow and Doppler was performed in limited views only. The study quality was technically adequate. Comparison is made with the echocardiogram of 11/09/11. The patient was in normal sinus rhythm during the exam. Left Ventricle: Left ventricular wall thickness is borderline increased. The left ventricle is normal in size. The ejection fraction is estimated to be 60-65%. Left ventricular systolic function is normal without focal wall motion abnormalities. Mitral Valve: The mitral valve is normal in structure and function. There is trace mitral regurgitation. Aortic Valve: The aortic valve opens well. The aortic valve is slightly calcified. Tricuspid Valve: The tricuspid valve is normal in structure and function. There is a trace or physiologic amount of tricuspid regurgitation. Pericardium/ Pleura There is no pericardial effusion. There has been no significant change since the previous study. MMode/2D Measurements & Calculations LVIDd LVOT diam LV boswell. diameter/BSA LV sys. diameter/BSA : 4.1 cm (cm/m^2): 2.5 (cm/m^2): 1.4 LVIDs Ao root diam : 2.3 cm FS: 44.6 % IVSd : 1.cm LVPWd : 0.9cm Electronically signed by: Nahid Campos on Reading Physician:08/25/2016 12:44 PM
--- NOTE | 2016-08-25 16:33 | NUR ---
Labs/pain RN recd a call this AM with Trop results significantly higher than initial. notified. instrument technician apprentice called. Results indicated a PE. Pt had CTA done and Lovenox given per orders. 1 of 4 (anaerobic) blood culture bottles are positive for Gram - vitaly. MD aware. Pt denies need for pain meds. States to occasionally have a sharp/sudden/short acting pain across incision line on R side (breast to back, from surgery couple weeks prior). Bed in low position, upper rails up, will continue to monitor. Addendum: 08/25/16 at 1840 by LAURI BONILLA RN Call just recd from [facility] with + Aerobic bottle with Gram - Vitaly. Note sent to .
[2016-08-26] VITALS (8 sets, daily range): BP systolic 115–143; BP diastolic 58–72; PULSE 63–93; RESP 16–24; O2SAT 95–97
--- NOTE | 2016-08-26 04:58 | NUR ---
Pain Patient started having lower back and leg pain 5/10. MD notified for pain medication order. Patient given Tylenol then given oxycodone later in the night. Patient pain 2/10
[2016-08-26] MEDS: 0.9% NaCl + KCl 20 mEq/L 1,000 ML IV SCH (06:24)
[2016-08-26] MEDS ORDERED: oxyCODONE-Acetamin 5-325 mg Tablet PO PRN (07:35)
[2016-08-26 07:42] LABS: BASOPHILS % (AUTO) 0.2 % (0-3); MONOCYTES % (AUTO) 10.5 % (4-12); Mean Corpuscular Hemoglobin 30.3 pg (27.0-35.0); Mean Corpuscular Volume 90.8 fL (81-100); NEUTROPHILS % (AUTO) 80.5 % (40-74); Platelet Count 198 bil/L (150-400)
[2016-08-26 08:11] LABS: Magnesium 1.9 mg/dL (1.6-2.6)
[2016-08-26] MEDS: Pantoprazole 20 mg ER24 Tablet PO SCH ×2 (08:16→19:33)
[2016-08-26] MEDS: Potassium Chloride 20 mEq SR Tablet PO SCH (08:16)
[2016-08-26] MEDS: Pantoprazole 40 mg ER24 Tablet PO SCH (08:18)
[2016-08-26] MEDS: [UNRECOGNIZED DRUG - OTHER] PO SCH (08:18)
[2016-08-26] MEDS: HCTZ PO SCH (08:18)
--- NOTE | 2016-08-26 09:21 | PCM.PNMED ---
Subjective Date of Service Aug 26, 2016 Subjective Patient had elevated troponin was prompted EKG which revealed new incomplete RBBB and other signs of right heart strain. Echocardiogram Unremarkable. CT angiogram revealed PE. Started on Lovenox. Blood culture 1/2 positive for gram negatives Exam Vital Signs Vital Sign - Last Date Time Temp Pulse Resp B/P Pulse Ox O2 Delivery O2 Flow Rate FiO2 08/26/16 08:50 36.4 93 20 115/70 95 Room Air Intake and Output 08/25/16 08/25/16 08/26/16 Cumulative From/Thru 15:00 23:00 07:00 08/25/16 00:38 - 08/26/16 06:24 Intake Total 1280 ml 1744 ml 4118 ml Output Total 1250 ml 1600 ml 3000 ml Balance 30 ml 144 ml 1118 ml Intake Oral 500 ml 500 ml 1000 ml IV Total 780 ml 1244 ml 3118 ml Output Urine Total 1250 ml 1600 ml 3000 ml # Voids 1 1 # Bowel Movements 2 2 Lab and Diagnostics Result Diagram: 08/26/16 0720 08/26/16 0720 X-Rays, CTs and MRIs Chest x-ray shows a possible rib fracture at sixth rib on the right consistent with possible right-sided thoracotomy for recent right lower lobectomy however fails to reveal any acute cardiopulmonary processes Assessment & Plan The patient is an 80-year-old female with past medical history remarkable for recent right lower lobectomy for adenocarcinoma of the lung, ulcerative colitis , history of CVA, and breast cancer presents with 1 day of worsening subjective chills. # Sepsis/gram-negative bacteremia, acute, POA - Patient is SIRS positive with initial tachycardia of 107, respiratory rate of 25, temperature of 37.1, white blood cell count of 9.4 - Patient has blood cells of 9.4 with significant neutrophil predominance - Pro calcitonin of 0.27 and lactic acid of 1.6 - Patient was given 1 L of normal saline IV fluids - Source of infection UTI -repeat blood culture sent 08/26 - Patient does have back pain that is chronic in nature and does not appear to be related to possible kidney infection at this time however is worse than it has been recently, neuro evaluation is negative for focal deficits and patient denies neurologic change # urinary tract infection - Patient presents with subjective chills and worsening dysuria and increased urgency and frequency of urination. - Urinary analysis with pyuria. Blood cultures 1 out of 2 are growing gram- negative rods, urine culture >100,000 GNRs - Chest x-ray negative - Cefepime started in emergency department, switched to ceftriaxone # Acute pulmonary embolism -Elevated troponin noted. Admission EKG and repeat EKG show new incomplete RBBB , new Q waves in leads III, more pronounced Q waves in lead III, and more pronounced S waves in I CTA ordered and shows pulmonary embolism D-dimer also elevated, echo unremarkable Lovenox therapeutic started. Discussed with her oncologist Dr Du, plan to discharge her on Pradaxa or any of NOACs , gave prescription to social work therapist to run by insurance and determine copay # Acute hypokalemia, resolved - Potassium of 3.0 on admission # Elevated troponins of unknown significance - Troponin at admission 0.018, repeat 0.11 - due to demand ischemia from sepsis and right heart strain due to pulmonary embolism. Echo did not show right heart strain but EKG did # Recent right lower lobectomy - Section records indicate that the patient was recently seen August 21 for postsurgical evaluation and cleared for follow-up in 1 week - Wound care consul ordered - Incentive spirometry - Follow up as an outpatient # Chronic hypertension - Continue outpatient Metoprolol tartrate 100 mg twice a day - Continue outpatient amlodipine 5 mg daily -resume Triamterene hydrochlorothiazide # Chronic hyperlipidemia - Continue outpatient atorvastatin 40 mg daily # History of multiple cerebrovascular accidents last in 2011 - Continue outpatient full dose aspirin # Gastroesophageal reflux disease - Continue outpatient PPI therapy - Pantoprazole 20 mg daily DVT prophylaxis: Lovenox therapeutic GI prophylaxis: Pantoprazole CODE STATUS: Full Disposition: Discharge in 2-3 days pending follow-up blood culture results and establishment of AC for PE GI Prophylaxis: Proton Pump Inhibitor VTE Prophylaxis: Sub-Q Heparin (Unfractionated), SCDs VTE Mechanical Devices: Intermittant Pneumatic CD Resuscitation Status: CPR: Attempt Resuscitation Sawyer Walter MD Aug 26, 2016 09:21
[2016-08-26] MEDS: cefTRIAXone Inj 2,000 MG in Dextrose 5% Minibag Plus 50 ML IV SCH (10:21)
[2016-08-27] VITALS (7 sets, daily range): BP systolic 120–169; BP diastolic 69–80; PULSE 68–89; RESP 20–21; O2SAT 95–97
[2016-08-27] MEDS: Pantoprazole 40 mg ER24 Tablet PO SCH (05:59)
--- NOTE | 2016-08-27 06:03 | NUR ---
BP BP was 165/80, gave 100mg metoprolol at 0603 instead of the scheduled 0830 time. Will continue to monitor.
[2016-08-27] MEDS: [UNRECOGNIZED DRUG - OTHER] PO SCH (08:23)
[2016-08-27] MEDS: Potassium Chloride 20 mEq SR Tablet PO SCH (08:23)
[2016-08-27] MEDS: HCTZ PO SCH (08:23)
[2016-08-27] MEDS: Pantoprazole 20 mg ER24 Tablet PO SCH ×2 (08:23→20:47)
--- NOTE | 2016-08-27 09:00 | NUR ---
DENY signed IRMA Andre
[2016-08-27] MEDS: cefTRIAXone Inj 2,000 MG in Dextrose 5% Minibag Plus 50 ML IV SCH (11:01)
--- NOTE | 2016-08-27 11:29 | PCM.PNMED ---
Subjective Date of Service Aug 27, 2016 Subjective no chills or fever . Blood and urine culture growing Escherichia coli. Blood pressure uncontrolled. Exam Vital Signs Vital Sign - Last Date Time Temp Pulse Resp B/P Pulse Ox O2 Delivery O2 Flow Rate FiO2 08/27/16 08:57 68 08/27/16 05:51 36.4 20 165/80 97 Room Air Intake and Output 08/26/16 08/26/16 08/27/16 Cumulative From/Thru 15:00 23:00 07:00 08/25/16 00:38 - 08/27/16 05:51 Intake Total 140 ml 592 ml 553 ml 5403 ml Output Total 700 ml 3700 ml Balance 140 ml -108 ml 553 ml 1703 ml Intake Oral 592 ml 553 ml 2145 ml IV Total 140 ml 3258 ml Output Urine Total 700 ml 3700 ml # Voids 2 4 7 # Bowel Movements 1 4 7 Exam General: well-nourished elderly female appearing approximately stated age, alert and cooperative in no acute distress Eyes: Pupils equal round and reactive to light, extraocular motion intact, anicteric sclera, noninjected conjunctiva HENT: Normocephalic, atraumatic. Moist mucous membranes without central cyanosis oropharynx clear without cobblestoning mucosa Neck: supple with full range of motion. No Thyromegaly or JVD noted Cardiovascular: Regular rate and rhythm, without murmurs rubs or gallops noted Chest & Lungs: Clear to auscultation bilaterally with mild decreased breath sounds noted in the right lower lung roberto without wheezing rales or rhonchi noted, noted pain on palpation of right thoracic area consistent with prior thoracotomy for right lower lobectomy Abdomen: On initial palpation of right lower quadrant patient jumped as if painful however on repeat palpation patient denies pain, nontender in all quadrants, Non-distended, No masses, Normoactive bowel tones, Soft. Small hematomas in lower abdomen consistent with subcutaneous heparin prior hospitalization Musculoskeletal: No swollen or erythematous joints Extremities: No cyanosis, clubbing, or edema noted, pulses intact bilaterally at radial and dorsalis pedis Skin: Warm and dry Neurological: Alert, oriented 3, nonfocal neurologic assessment, patient able to move all extremities spontaneously Psych: Normal mood and affect. IVs and Medications Medications Reviewed: Medications were reviewed in detail Lab and Diagnostics Result Diagram: 08/26/16 0720 08/26/16 0720 X-Rays, CTs and MRIs Chest x-ray shows a possible rib fracture at sixth rib on the right consistent with possible right-sided thoracotomy for recent right lower lobectomy however fails to reveal any acute cardiopulmonary processes Assessment & Plan The patient is an 80-year-old female with past medical history remarkable for recent right lower lobectomy for adenocarcinoma of the lung, ulcerative colitis , history of CVA, and breast cancer presents with 1 day of worsening subjective chills. # Sepsis/gram-negative bacteremia, acute, POA - Patient is SIRS positive with initial tachycardia of 107, respiratory rate of 25, temperature of 37.1, white blood cell count of 9.4 - Patient has blood cells of 9.4 with significant neutrophil predominance - Pro calcitonin of 0.27 and lactic acid of 1.6 - Patient was given 1 L of normal saline IV fluids - Source of infection UTI -Initial blood culture 1 out of growing Escherichia coli. Urine culture also growing Escherichia coli. Repeat blood culture sent 08/26 - Patient does have back pain that is chronic in nature and does not appear to be related to possible kidney infection at this time however is worse than it has been recently, neuro evaluation is negative for focal deficits and patient denies neurologic change # urinary tract infection - Patient presents with subjective chills and worsening dysuria and increased urgency and frequency of urination. - Urinary analysis with pyuria. Blood cultures 1 out of 2 are growing Escherichia coli, urine culture Escherichia coli - Chest x-ray negative - Cefepime started in emergency department, switched to ceftriaxone -US KUB requested to rule out any obstruction or other predisposing factors # Acute pulmonary embolism -Elevated troponin noted. Admission EKG and repeat EKG show new incomplete RBBB , new Q waves in leads III, more pronounced Q waves in lead III, and more pronounced S waves in I CTA ordered and shows pulmonary embolism D-dimer also elevated, echo unremarkable Lovenox therapeutic started. Discussed with her oncologist Dr Du, plan to discharge her on Pradaxa or any of NOACs , gave prescription to high school social studies tutor to run by insurance and determine copay # Acute hypokalemia, resolved - Potassium of 3.0 on admission # Elevated troponins - Troponin at admission 0.018, repeat 0.11, trended down - due to demand ischemia from sepsis and right heart strain due to pulmonary embolism. Echo did not show right heart strain but EKG did # Recent right lower lobectomy - Incentive spirometry -Percocet for pain control - Follow up as an outpatient # Chronic hypertension - Continue outpatient Metoprolol tartrate 100 mg twice a day - Continue outpatient amlodipine 5 mg daily -resume Triamterene hydrochlorothiazide -BP uncontrolled, patient getting only the HCTZ dose of her home Triamterene/ hydrochlorothiazide as it is nonformulary # Chronic hyperlipidemia - Continue outpatient atorvastatin 40 mg daily # History of multiple cerebrovascular accidents last in 2011 - Continue outpatient full dose aspirin # Gastroesophageal reflux disease - Continue outpatient PPI therapy - Pantoprazole 20 mg daily DVT prophylaxis: Lovenox therapeutic GI prophylaxis: Pantoprazole CODE STATUS: Full Disposition: Discharge tomorrow on oral antibiotics pending follow-up blood culture results and approved for NOACs GI Prophylaxis: Proton Pump Inhibitor VTE Prophylaxis: Sub-Q Heparin (Unfractionated), SCDs VTE Mechanical Devices: Intermittant Pneumatic CD Resuscitation Status: CPR: Attempt Resuscitation Sawyer Walter MD Aug 27, 2016 11:29
--- NOTE | 2016-08-27 15:29 | NUR ---
Social Work: Initial Assessment Data: Pt is an 80 y/o female admitted for UTI, elevated troponin, hypomagnesemia. Pt's PCP is Dr Morales, pt's insurance is [employer] with [employer]. EMR reviewed. Readmit score is 6, high. FORENSICS TEAM DIRECTOR met with pt and spouse at bedside, role explained. Pt states that she lives in [place] with her spouse in a two story home where shes uses no DME. Pt drives, has no hx of HH or SNF, no LTC or VA benefits. Pt is not a caregiver. Pt reports being up and independent in the room. No d/c planning needs anticipated at this time. FORENSICS TEAM DIRECTOR will continue to follow if needs arise. Assessment: Pt who is independent at baseline. Plan: Pt will d/c home via POV with spouse when medically stable. FORENSICS TEAM DIRECTOR will run further prescriptions requested by MD to compare to cost of prescription run yesterday. FORENSICS TEAM DIRECTOR will continue to follow. IRMA Andre Addendum: 08/27/16 at 1532 by CALEB AUGUSTE Amended: Links added.
--- NOTE | 2016-08-27 19:20 | DRSVH ---
PROCEDURE: US RENAL SONOGRAM INDICATIONS: bacteremia ,UTI TECHNIQUE: Real-time scanning was performed of the kidneys and bladder, with image documentation. COMPARISON: None. FINDINGS: Kidneys: Kidneys are normal in size. Right kidney measures 9.7 cm long; left kidney measures 10.7 c m long. Right renal cortical thickness is 1.2 cm; left renal cortical thickness is 1.0 cm. Renal co rtical echotexture is normal. No hydronephrosis or nephrolithiasis. No suspicious solid mass lesion s. Bladder: The patient voided prior to the exam. Post-void residual is 11 mL. Pre-void images demonst rate no intraluminal masses or stones. Miscellaneous: No free pelvic fluid. IMPRESSION: Normal ultrasound appearance of kidneys. No hydronephrosis. Dictated by: Shereen Goins M.D. on 08/27/2016 at 19:17 Approved by: Shereen Goins M.D. on 08/27/2016 at 19:18
[2016-08-28] MEDS: HCTZ PO SCH (08:30)
[2016-08-28] MEDS: [UNRECOGNIZED DRUG - OTHER] PO SCH (08:30)
[2016-08-28 08:54] VITALS: BP 175/81; PULSE 96; RESP 19; O2SAT 96
[2016-08-28] MEDS: Pantoprazole 40 mg ER24 Tablet PO SCH (08:54)
[2016-08-28] MEDS: Potassium Chloride 20 mEq SR Tablet PO SCH (08:55)
[2016-08-28] MEDS: cefTRIAXone Inj 2,000 MG in Dextrose 5% Minibag Plus 50 ML IV SCH (09:05)
--- NOTE | 2016-08-28 11:21 | NUR ---
Called the [facility] pharmacy and the Pradaxa is $185 for one month fill, Rivaroxaban 20MG $47 for one month fill, Rivaroxaban 15mg $32.97 for 21 day fill and Eliquis $47 for one month fill. These are all currently on patient's chart at [facility] and we call back to let them know which one we would like to have filled. Updated DESIGNER ARCHITECT
[2016-08-28 14:02] VITALS: BP 151/66; PULSE 75; RESP 18; O2SAT 96
--- NOTE | 2016-08-28 15:39 | PCM.PNMED ---
Subjective Date of Service Aug 28, 2016 Subjective Reports generalized weakness but otherwise denies any other new issues/ complaints Exam Vital Signs Vital Sign - Last Date Time Temp Pulse Resp B/P Pulse Ox O2 Delivery O2 Flow Rate FiO2 08/28/16 14:02 36.3 75 18 151/66 96 Room Air Intake and Output 08/27/16 08/27/16 08/28/16 Cumulative From/Thru 15:00 23:00 07:00 08/25/16 00:38 - 08/27/16 18:38 Intake Total 60 ml 800 ml 6263 ml Output Total 2 ml 3702 ml Balance 60 ml 798 ml 2561 ml Intake Oral 800 ml 2945 ml IV Total 60 ml 3318 ml Output Urine Total 2 ml 3702 ml # Voids 7 # Bowel Movements 7 General: Alert, Oriented X3, Cooperative, No Acute Distress Head: Normal Eyes: Scleral Anicteric Nose: Mucous Membr Moist/Wickes Mouth: Mucous Membr Moist/Wickes Neck: Supple Chest & Lungs: Chest Wall Normal, Clear to auscultation & percussion Cardiovascular: Regular Rate/Rhythm Abdomen: Non-tender, Non-distended, Normoactive bowel tones, Soft Extremities: No cyanosis/clubbing/edma bilat Neurological: Grossly Neurologically Intact, Normal Speech IVs and Medications Medications Reviewed: Medications were reviewed in detail Lab and Diagnostics Result Diagram: 08/26/16 0720 08/26/16 0720 X-Rays, CTs and MRIs Chest x-ray shows a possible rib fracture at sixth rib on the right consistent with possible right-sided thoracotomy for recent right lower lobectomy however fails to reveal any acute cardiopulmonary processes Assessment & Plan 80-year-old female with past medical history remarkable for recent right lower lobectomy for adenocarcinoma of the lung, ulcerative colitis, history of CVA, and breast cancer presents with 1 day of worsening subjective chills. # Sepsis/gram-negative bacteremia, acute, present on admission - SIRS with initial tachycardia of 107, respiratory rate of 25, temperature of 37.1, white blood cell count of 9.4 - Source of infection E. Coli UTI and associated bacteremia - Repeat blood culture sent 08/26 # Acute E. Coli urinary tract infection, present on admission - Cefepime started in emergency department, switched to ceftriaxone - U/S 08/27 without hydronephrosis - Change IV Abx to PO to ensure able to tolerate in anticipation of discharge tomorrow # Acute pulmonary embolism, present on admission. - CTA on admission positive for pulmonary embolism - Echo unremarkable - Lovenox therapeutic started. Per earlier notes: "discussed with her oncologist Dr Du, plan to discharge her on Pradaxa or any of NOACs , gave prescription to social science teacher to run by insurance and determine co-pay" # Acute hypokalemia, present on admission. Resolved # Elevated troponin, present on admission - Troponin at admission 0.018, repeat 0.11, trended down to normal - Due to demand ischemia from sepsis and right heart strain due to pulmonary embolism. Echo did not show right heart strain but EKG did # Recent right lower lobectomy - Incentive spirometry - Percocet for pain control - Follow up as an outpatient # Chronic hypertension - Continue outpatient Metoprolol tartrate 100 mg twice a day - Continue outpatient amlodipine 5 mg daily - Resume Triamterene hydrochlorothiazide - BP uncontrolled, patient getting only the HCTZ dose of her home Triamterene/ hydrochlorothiazide as it is non-formulary # Chronic hyperlipidemia - Continue outpatient atorvastatin 40 mg daily # History of multiple cerebrovascular accidents last in 2011 - Continue outpatient full dose aspirin # Gastroesophageal reflux disease - Continue outpatient PPI therapy - Pantoprazole 20 mg daily Disposition: Discharge tomorrow GI Prophylaxis: Proton Pump Inhibitor VTE Prophylaxis: Sub-Q Heparin (Unfractionated), SCDs VTE Mechanical Devices: Intermittant Pneumatic CD Resuscitation Status: CPR: Attempt Resuscitation Girma Chakraborty Aug 28, 2016 15:39 VTE Mechanical Devices: Intermittant Pneumatic CD Resuscitation Status: CPR: Attempt Resuscitation Girma Chakraborty Aug 28, 2016 15:39
[2016-08-28 16:05] VITALS: PULSE 90
[2016-08-28 17:15] VITALS: BP 164/83; PULSE 87; RESP 19; O2SAT 95
--- NOTE | 2016-08-28 17:15 | NUR ---
Day Shift Note Pt up in room independently. States she has some SOB with exertion. Continues to use incentive spirometer frequently. Denies pain at this time, but did request 1 oxycodone for feeling "very anxious". For personal reasons, pt was off the unit, down in the ED, accompanied by DEHYDRATOR TENDER from 1530 to 1600. MD aware and agreeable. Tele was re-applied per MD orders r/t pt's PE. Pt alert and oriented, able to make needs known. Call light in reach, universal fall precautions in place.
[2016-08-28 20:00] VITALS: PULSE 106
[2016-08-29 00:06] VITALS: BP 151/76; PULSE 78; RESP 18; O2SAT 96
[2016-08-29 04:22] VITALS: BP 175/84; PULSE 83; RESP 16; O2SAT 98
[2016-08-29 06:02] LABS: Mean Corpuscular Hemoglobin 30.9 pg (27.0-35.0); Mean Corpuscular Volume 89.4 fL (81-100)
[2016-08-29 06:48] LABS: INR 0.92 ratio
[2016-08-29] MEDS: Pantoprazole 40 mg ER24 Tablet PO SCH (08:22)
[2016-08-29] MEDS: HCTZ PO SCH (08:22)
[2016-08-29] MEDS: Potassium Chloride 20 mEq SR Tablet PO SCH (08:22)
[2016-08-29] MEDS: [UNRECOGNIZED DRUG - OTHER] PO SCH (08:22)
[2016-08-29 09:02] VITALS: BP 162/83; PULSE 100; RESP 18; O2SAT 95
--- NOTE | 2016-08-29 10:31 | NUR ---
Social Work-readiness for discharge: Data:EMR Reviewed. Pt is on day 4 of hospitalization for UTI per H&P. Pt is likely medically stable later today for discharge. SW spoke with MD about medications and he states that the $47 medication would be fine. SW updated pt and she is agreeable to cost of medication. Pt would like to speak with MD regarding medication. SW updated MD. Pt's family to provide transport home. No discharge needs identified. SW will continue to follow if needs arise. Assessment:Pt who is independent at baseline. Plan:Pt to discharge home when medically stable. MD to speak with pt regarding medications. No discharge needs identified. SW will continue to follow if needs arise. IRMA Pimentel
[2016-08-29 10:53] VITALS: PULSE 90
[2016-08-29] MEDS ORDERED: ASPI-973 PO (11:39)
[2016-08-29] MEDS ORDERED: APIX5TAB PO (11:39)
[2016-08-29] MEDS ORDERED: CEFU250T82 PO (11:39)
--- NOTE | 2016-08-29 11:43 | PCM.DIMED ---
Discharge Instructions Date of Service Aug 29, 2016 Dates of Hospitalization Aug 25, 2016 at 03:29 Discharge Diagnosis Discharge Diagnosis # Sepsis/gram-negative bacteremia, acute, present on admission - Source of infection E. Coli UTI and associated bacteremia # Acute E. Coli urinary tract infection (UTI), present on admission # Acute pulmonary embolism, present on admission. # Acute hypokalemia, present on admission. Resolved # Elevated troponin, present on admission - Due to demand ischemia from sepsis and pulmonary embolism. # Recent right lower lobectomy # Chronic hypertension # Chronic hyperlipidemia # History of multiple cerebrovascular accidents last in 2011 # Gastroesophageal reflux disease Diet Discharge Diet: Low fat, Low Sodium, Heart Healthy Activity Discharge Activity: No restrictions Call your provider Call your provider for: Fever or Chills, Shortness of breath, Bleeding, Chest pain, Excessive diarrhea Patient Instructions Patient Instructions Seek immediate medical attention if any new or worsening signs or symptoms occur. Follow-up plan 1. Followup with primary care provider (Dr. Morales) in 3-7 days 2. Followup with oncology (Dr. Du) in 1-2 weeks Follow-up Provider: Tc Morales MD Provider: Jazz Du MD, Masoud Aug 29, 2016 11:43
--- NOTE | 2016-08-29 11:45 | NUR ---
Social Work-discharge: Data:EMR reviewed. Pt is on day 4 of hospitalization for UTI per H&P. Pt is medically stable for discharge home today. Pt to go home with Eliquis which is $47 at [facility]. Pt is agreeable to the cost of this and is ready to discharge home today. Pt's family to provide transport. All updated and agreeable to plan. Assessment:Pt who is independent at baseline. Plan:Pt to discharge home today via POV. No discharge needs identified. All updated and agreeable to plan. IRMA Pimentel
[2016-08-29 12:30] VITALS: BP 132/82; PULSE 71; RESP 18; O2SAT 97
--- NOTE | 2016-08-29 13:21 | NUR ---
Discharge Pt discharged to home at 1306. Transported off unit in wheelchair, accompanied by MINI SHIFTER and . Discharge instructions given and explained. 2 hard copies of prescriptions given and instructed to follow up with PCP and oncologist in next few weeks. Care notes provided.Pt verbalizes understanding, denies further questions. Belongings sent with pt.
--- NOTE | 2016-08-29 19:17 | PCM.DC.MED ---
Discharge Summary Date of Service Aug 29, 2016 Dates of Hospitalization Date of Hospital Admission Aug 25, 2016 at 03:29 Date of Discharge: Aug 29, 2016 Providers: Admitting Physician: Girma Mendenhall Primary Care Physician: Tc Morales MD Attending Physician: Girma Mendenhall Diagnosis at Time of Discharge Diagnosis at Time of Discharge # Sepsis/gram-negative bacteremia, acute, present on admission - Source of infection E. Coli UTI and associated bacteremia # Acute E. Coli urinary tract infection (UTI), present on admission # Acute pulmonary embolism, present on admission. # Acute hypokalemia, present on admission. Resolved # Elevated troponin, present on admission - Due to demand ischemia from sepsis and pulmonary embolism. # Recent right lower lobectomy # Chronic hypertension # Chronic hyperlipidemia # History of multiple cerebrovascular accidents last in 2011 # Gastroesophageal reflux disease Procedures XRay, CTs & MRIs Chest x-ray shows a possible rib fracture at sixth rib on the right consistent with possible right-sided thoracotomy for recent right lower lobectomy however fails to reveal any acute cardiopulmonary processes Brief History As noted in H&P by Dr. Zavala: The patient is an 80-year-old female with past medical history remarkable for recent right lower lobectomy for adenocarcinoma of the lung, ulcerative colitis , history of CVA, and breast cancer presents with 1 day of worsening subjective chills. The patient states that she woke up this morning freezing cold and could not get warm all day. The patient denies fever or sweating. The patient admits to a recent few day history of pain with urination notably burning in her groin, and increased urgency and frequency of urination. She denies blood in her urine or changes in color or consistency of her urine. The patient denies any past history of kidney infections or urinary tract infections and is unsure of the last time she has had antibiotics. The patient denies any chest pain, shortness of breath, worsening productive cough. The patient states that she has a chronic cough and that her phlegm has remained clear. The patient was recently hospitalized August 07 through August 14 for a planned right lower lobectomy for right lower lobe adenocarcinoma of the lung. Review of prior hospital records indicate the patient suffered no complications and was doing well within days of her lobectomy however the patient felt uncomfortable being discharged home with her to home health 5 days after surgery so she was monitored a few additional days. Hospital Course # Sepsis/gram-negative bacteremia, acute, present on admission - SIRS with initial tachycardia of 107, respiratory rate of 25, temperature of 37.1, white blood cell count of 9.4 - Source of infection E. Coli UTI and associated bacteremia - Repeat blood culture sent 08/26 negative # Acute E. Coli urinary tract infection, present on admission - Cefepime started in emergency department, switched to ceftriaxone - U/S 08/27 without hydronephrosis - Change IV Abx to PO Ceftin to ensure able to tolerate in anticipation of discharge # Acute pulmonary embolism, present on admission. - CTA on admission positive for pulmonary embolism - Echo unremarkable - Lovenox therapeutic started. Per earlier notes: "discussed with her oncologist Dr Du, plan to discharge her on Pradaxa or any of NOACs , gave prescription to psychiatric social worker supervisor to run by insurance and determine co-pay" - Patient will be discharged home with Eliquis as noted below # Acute hypokalemia, present on admission. Resolved # Elevated troponin, present on admission - Troponin at admission 0.018, repeat 0.11, trended down to normal - Due to demand ischemia from sepsis and right heart strain due to pulmonary embolism. Echo did not show right heart strain but EKG did # Recent right lower lobectomy - Incentive spirometry - Follow up as an outpatient # Chronic hypertension - Continue outpatient Metoprolol tartrate 100 mg twice a day - Continue outpatient amlodipine 5 mg daily - Resume Triamterene hydrochlorothiazide # Chronic hyperlipidemia - Continue outpatient atorvastatin 40 mg daily # History of multiple cerebrovascular accidents last in 2011 - Continue outpatient full dose aspirin # Gastroesophageal reflux disease - Continue outpatient PPI therapy - Pantoprazole 20 mg daily Exam Vital Signs (Last) Date Time Temp Pulse Resp B/P Pulse Ox O2 Delivery O2 Flow Rate FiO2 08/29/16 12:30 36.4 71 18 132/82 97 Room Air Exam General: Alert, Oriented X3, Cooperative, No Acute Distress Head: Normal Eyes: Scleral Anicteric Nose: Mucous Membr Moist/[place] Mouth: Mucous Membr Moist/[place] Neck: Supple Chest & Lungs: Chest Wall Normal, Clear to auscultation bilat Cardiovascular: Regular Rate/Rhythm Abdomen: Non-tender, Non-distended, Normoactive bowel tones, Soft Extremities: No cyanosis/clubbing/edema bilat Neurological: Grossly Neurologically Intact, Normal Speech Test 08/25/16 00:43 08/25/16 01:25 08/25/16 09:10 08/25/16 12:00 Urine Color Yellow (YELLOW) Urine Appearance Clear (CLEAR,HAZY) Urine pH 6.0 (5.0-8.0) Urine Specific [place] 1.020 (1.003-1.035) Urine Protein 100mg/dL (NEG,TRACE) Urine Glucose (UA) Negativemg/dL (NEGATIVE) Urine Ketones Negativemg/dL (NEGATIVE) Urine Occult Blood Moderate (NEGATIVE) Urine Nitrite Negative (NEGATIVE) Urine Bilirubin Negative (NEGATIVE) Urine Urobilinogen Normalmg/dL (NORMAL) Urine Leukocyte Esterase Small (NEGATIVE) Urine RBC 11-50/hpf (0-2) Urine WBC 11-50/hpf (0-5) Urine Epithelial Cells Moderate/hpf (NONE-MOD) Urine Crystals None seen (NONE SEEN) Urine Bacteria Few/hpf (NONE-FEW) Urine Hyaline Casts None/lpf (NONE) Urine Granular Casts None seen (NONE SEEN) Urine Waxy Casts None seen (NONE SEEN) Urine Red Blood Cell Casts None seen (NONE SEEN) Urine White Blood Cell Casts None seen (NONE SEEN) Urine Mucus None seen (None Seen) Urine Trichomonas None seen (NONE SEEN) Urine Yeast None (NONE SEEN) Urinalysis Comment None Urine Culture Reflexed Indicated D-Dimer 3.57mg/L FEU (<0.50) Lactic Acid Level 1.6mmol/L (0.4-2.0) Procalcitonin 0.27ng/mL (0.00-0.08) Phosphorus Level 3.1mg/dL (2.5-4.9) Total Creatine Kinase 42U/L (21-215) Creatine Kinase MB 1.7ng/mL (0.0-5.3) Creatine Kinase MB % % (0.0-5.0) Pro-B-Type Natriuretic Peptide 976.8pg/mL (0-738) Troponin T 0.010ug/L (0.0-0.011) Test 08/26/16 07:20 08/29/16 05:24 Neutrophils (%) (Auto) 80.5% (40-74) Lymphocytes (%) (Auto) 7.6% (14-46) Monocytes (%) (Auto) 10.5% (4-12) Eosinophils (%) (Auto) 1.0% (0-5) Basophils (%) (Auto) 0.2% (0-3) Magnesium Level 1.9mg/dL (1.6-2.6) Total Bilirubin 0.3mg/dL (0.0-1.2) Aspartate Amino Transf (AST/SGOT) 18U/L (0-50) Alanine Aminotransferase (ALT/SGPT) 17U/L (0-32) Alkaline Phosphatase 103U/L (25-165) Total Protein 5.8g/dL (6.4-8.4) Albumin 3.0g/dL (3.4-5.0) White Blood Count 6.2th/mm3 (3.8-10.1) Red Blood Count 3.76mil/mm3 (3.90-5.20) Hemoglobin 11.6g/dL (12.0-15.6) Hematocrit 33.6% (35.0-46.0) Mean Corpuscular Volume 89.4fL (81-100) Mean Corpuscular Hemoglobin 30.9pg (27.0-35.0) Mean Corpuscular Hemoglobin Concent 34.5% (32.0-37.0) Red Cell Distribution Width 13.2% (12.3-15.4) Platelet Count 227bil/L (150-400) Prothrombin Time 9.8sec (8.1-12.5) Prothromb Time International Ratio 0.92ratio Activated Partial Thromboplast Time 30.8sec (22.8-33.0) Sodium Level 140mEq/L (134-144) Potassium Level 4.0mEq/L (3.5-5.2) Chloride Level 100mEq/L (97-108) Carbon Dioxide Level 24mmol/L (18-29) Blood Urea Nitrogen 12mg/dL (8-27) Creatinine 0.55mg/dL (0.57-1.00) Estimat Glomerular Filtration Rate 152mL/min (>59) Glucose Level 109mg/dL (60-99) Calcium Level 9.5mg/dL (8.5-10.1) Discharge Medications Discharge Medications Amlodipine (Amlodipine) 10 Mg Tablet 10 MG PO DAILY (Reported) Apixaban (Eliquis) 5 Mg Tablet 5 MG PO BID Take 2 tablets (10 mg) twice daily for 7 days then, Continue taking one tablet (5 mg) twice daily Prescribed by: GIRMA MENDENHALL MD Aspirin (Aspirin) 81 Mg Tablet 81 MG PO DAILY Prescribed by: GIRMA MENDENHALL MD Atorvastatin (Lipitor) 20 Mg Tablet 40 MG PO DAILY (Reported) Calcium Carbonate/Vitamin D3 (Calcium 500 + Vit D Caplet) 1 Each Tablet 1 EACH PO BID (Reported) Cefuroxime Axetil (Cefuroxime) 250 Mg Tablet 500 MG PO BID Prescribed by: GIRMA MENDENHALL MD Cholecalciferol (Vitamin D3) (Vitamin D3) 1,000 Unit Tab.chew Unknown Dose PO DAILY (Reported) Metoprolol Tartrate (Metoprolol Tartrate) 100 Mg Tablet 100 MG PO BID (Reported ) Multivitamin (Once Daily) 1 Each Tablet 1 EACH PO DAILY (Reported) [place]-3/Dha/Epa/Fish Oil (Fish Oil 1,000 mg Softgel) 1 Each Capsule 2 EACH PO DAILY (Reported) 2 CAPSULES DAILY Omeprazole (Omeprazole) 20 Mg Tablet.dr 20 MG PO DAILY (Reported) Triamterene/HCTZ 37.5-25 mg (Triamterene/HCTZ 37.5-25 mg) 1 Each Tablet 0.5 TABLET PO DAILY (Reported) Followup Plan Disposition: Home Follow-up plan 1. Followup with primary care provider (Dr. Morales) in 3-7 days 2. Followup with oncology (Dr. Du) in 1-2 weeks Discharge Diet: Low fat, Low Sodium, Heart Healthy Discharge Activity: No restrictions Patient Instructions Seek immediate medical attention if any new or worsening signs or symptoms occur. Follow-up Provider: Tc Morales MD Provider: Jazz Du MD Time spent 35 min copies to: Tc Morales MD; Jazz Du MD, Masoud Aug 29, 2016 19:17
== END 2016-08-29 13:06 | disposition home or self-care (01) | DRG 871 ==
LOC: EDBD 00:17 → SED 00:17 → EDUNIT# 00:17 → MPC 03:29
PROVIDERS: ADMIT Internal Medicine; ATTEND Internal Medicine
DX: A41.51 Sepsis due to Escherichia coli [E. coli] (principal); I26.99 Other pulmonary embolism without acute cor pulmonale; N39.0 Urinary tract infection, site not specified; I24.8 Other forms of acute ischemic heart disease; I10 Essential (primary) hypertension; E78.5 Hyperlipidemia, unspecified; E83.42 Hypomagnesemia; E87.6 Hypokalemia; K21.9 Gastro-esophageal reflux disease without esophagitis; I45.10 Unspecified right bundle-branch block; Z85.118 Personal history of other malignant neoplasm of bronchus and lung; Z98.890 Other specified postprocedural states; Z88.0 Allergy status to penicillin; Z79.82 Long term (current) use of aspirin; Z86.73 Personal history of transient ischemic attack (TIA), and cerebral infarction without residual deficits